=== PATIENT | male | born 1985 | race Caucasian/White ===

== ENCOUNTER 2016-08-04 21:06 | Emergency (ER) | payer OTHER ==
[~2016-08-04] VITALS: Ht 195.6 cm; Wt 125.0 kg
[2016-08-04 21:13] VITALS: Ht 195.6 cm; Wt 125.0 kg
[2016-08-04 21:23] VITALS: O2SAT 97
[2016-08-04] MEDS ORDERED: ASPIRIN 81 MG CHEW PO ONE (21:30)
[2016-08-04] MEDS ORDERED: NITROGLYCERIN OINT 2% 1GM PACKET EXT ONE (21:30)
[2016-08-04 21:37] LABS: HEMATOCRIT 43.7 % (42-52); MEAN CELL VOLUME 90.7 fL (80-100); MEAN CORPUSCULAR HEMOGLOBIN 30.5 pg (25-34); MEAN CORPUSCULAR HGB CONC 33.6 g/dl (32-36); MEAN PLATELET VOLUME 9.5 fL (7.4-10.4); PLATELET COUNT 252 K/uL (130-400); RED BLOOD COUNT 4.82 M/uL (4.7-6.1)
[2016-08-04 21:45] LABS: PARTIAL THROMBOPLASTIN RATIO 1.1; PROTHROMBIN TIME (PATIENT) 10.6 SECONDS (9.0-12.0)
--- NOTE | 2016-08-04 21:49 | DIAGNOSTIC IMAGING REPORT ---
SINGLE VIEW CHEST CLINICAL HISTORY: Atypical chest pain. FINDINGS: An AP, portable, upright chest radiograph is obtained. No prior studies are available for comparison at the time of dictation. The examination is degraded by portable technique and patient rotation. The cardiomediastinal silhouette is unremarkable. The lungs and pleural spaces are clear. No pneumothorax is seen. The bony thorax is grossly intact. IMPRESSION: No active disease in the chest. Electronically signed by: Karri Pelayo M.D. 08/04/2016 9:47 PM Dictated Date/Time: 08/04/2016 9:47 PM
[2016-08-04] MEDS ORDERED: TPRSR/25 PO (21:52)
[2016-08-04] MEDS ORDERED: PRLSR20 PO (21:52)
[2016-08-04 21:59] LABS: ISTAT CREATININE 0.8 mg/dl (0.6-1.3); ISTAT HEMOGLOBIN 14.6 g/dl (14.0-18.0); ISTAT IONIZED CALCIUM 1.23 mmol/l (1.12-1.32)
[2016-08-04 22:00] LABS: BUN/CREATININE RATIO 12.9 (10-20); CREATININE 1.1 mg/dl (0.60-1.40); MAGNESIUM 2.2 mg/dl (1.8-2.4); POTASSIUM 3.7 mmol/L (3.5-5.1)
[2016-08-04 22:08] LABS: CALCIUM 9.5 mg/dl (8.5-10.1)
[2016-08-04 22:10] LABS: ALB/GLOB RATIO 1.5 (0.9-2); CKMB/CK RATIO 0.9 (0-3.0); THYROID STIMULATING HORMONE 3.43 uIu/ml (0.300-4.500)
--- NOTE | 2016-08-05 00:21 | EMERGENCY ROOM VISIT NOTE ---
History First contact with patient: 21:29 Chief Complaint: CHEST PAIN Stated Complaint: CHEST PAINS,ARM NUMBNESS Nursing Triage Summary: "chest pain" facial grimaces, clutching left upper chest with left fist, c/i left and numb and tingling left arm rates pain #5 now, #6 at the worst History of Present Illness The patient is a 31 year old male who presents to the Emergency Room with complaints of intermittent left chest pain for the past week that goes down his arm. He describes pain as aching, ranging in severity 5 out of 10. Pain is not exertional. Nothing makes it better or worse. His father from heart disease at age 57. Patient smokes. He has high blood pressure and cholesterol. Pain has been ongoing for a few hours now. Patient denies dyspnea , fever, chills, cough, congestion, back pain, leg pain or swelling. He has occasional palpitations. Review of Systems See HPI for pertinent positives & negatives. A total of 10 systems reviewed and were otherwise negative. Past Medical/Surgical History Hypertension, hyperlipidemia, GERD Social History Smoking Status: Current Every Day Smoker Alcohol Use: none Drug Use: none Marital Status: Housing Status: lives with family Occupation Status: employed Current/Historical Medications Scheduled Metoprolol Succinate (Metoprolol Succinate ER), 25 MG PO DAILY Omeprazole (Prilosec), 20 MG PO DAILY Allergies Coded Allergies: Amoxicillin (Verified Allergy, Severe, ANAPHYLAXIS, 08/04/16) Clavulanic Acid (Verified Allergy, Severe, ANAPHYLAXIS, 08/04/16) Physical Exam Vital Signs Date Time Temp Pulse Resp B/P Pulse Ox O2 Delivery O2 Flow Rate FiO2 08/04/16 23:36 96 21 96 Room Air 08/04/16 23:31 127/77 08/04/16 23:06 99 24 93 08/04/16 23:01 115/67 08/04/16 22:36 101 16 95 08/04/16 22:31 121/71 08/04/16 22:06 103 23 95 08/04/16 22:00 127/73 08/04/16 21:36 103 24 95 08/04/16 21:31 141/93 08/04/16 21:29 96 Room Air 08/04/16 21:26 96 20 97 Room Air 08/04/16 21:24 105 08/04/16 21:23 36.9 98 17 170/103 97 Room Air 08/04/16 21:23 97 Room Air 08/04/16 21:21 98 17 95 08/04/16 21:16 100 24 97 08/04/16 21:13 36.9 100 20 170/103 97 Room Air 08/04/16 21:11 170/103 Pain Rating (0-10): 0 Physical Exam VITALS: Vitals are noted on the nurse's note and reviewed by myself. Vital signs stable. GENERAL: Pleasant male, in no acute distress, nondiaphoretic, well-developed well-nourished. SKIN: The skin was without rashes, erythema, edema, or bruising. There is no tenting of the skin. Capillary reflex less than 2 seconds. HEAD: Normocephalic atraumatic. EARS: External auditory canals clear, tympanic membranes pearly means without erythema or effusion bilaterally. EYES: Pupils equal round and reactive to light and accommodation. Conjunctivae without injection, sclerae without icterus. Extraocular movements intact. NOSE: Patent, turbinates without inflammation or discharge. MOUTH: Mucous membranes moist. Pharynx without erythema or exudate. Uvula midline. Airway patent. Tongue does not deviate. NECK: Supple without nuchal rigidity. No lymphadenopathy. No thyromegaly. Cervical spine is nontender. No JVD. HEART: Regular rate and rhythm without murmurs gallops or rubs. Chest nontender to palpation LUNGS: Clear to auscultation bilaterally without wheezes, rales or rhonchi. No dullness to percussion. No retractions or accessory muscle use. ABDOMEN: Positive bowel sounds x 4. Normal tympanic percussion. Soft, nontender, without masses or organomegaly. Hicks sign negative. No guarding or rebound tenderness. MUSCULOSKELETAL: No muscle atrophy, erythema, or edema noted. NEURO: Patient was alert and oriented to person place and time. Normal sensation to light and sharp touch. No focal neurological deficits. Medical Decision & Procedures Laboratory Results 08/04/16 21:19 08/04/16 21:19 Test 08/04/16 21:19 08/04/16 21:45 08/04/16 23:56 Red Blood Count 4.82 M/uL (4.7-6.1) Mean Corpuscular Volume 90.7 fL (80-100) Mean Corpuscular Hemoglobin 30.5 pg (25-34) Mean Corpuscular Hemoglobin Concent 33.6 g/dl (32-36) RDW Standard Deviation 43.5 fL (36.4-46.3) RDW Coefficient of Variation 13.1 % (11.5-14.5) Mean Platelet Volume 9.5 fL (7.4-10.4) Prothrombin Time 10.6 SECONDS (9.0-12.0) Prothromb Time International Ratio 1.0 (0.9-1.1) Activated Partial Thromboplast Time 29.2 SECONDS (21.0-31.0) Partial Thromboplastin Ratio 1.1 D-Dimer 240 ug/L FEU (0-500) Est Creatinine Clear Calc Drug Dose 139.8 ml/min Estimated GFR () 101.7 Estimated GFR (Non- 87.7 BUN/Creatinine Ratio 12.9 (10-20) Calcium Level 9.5 mg/dl (8.5-10.1) Magnesium Level 2.2 mg/dl (1.8-2.4) Total Bilirubin 0.5 mg/dl (0.2-1) Aspartate Amino Transf (AST/SGOT) 26 U/L (15-37) Alanine Aminotransferase (ALT/SGPT) 41 U/L (12-78) Alkaline Phosphatase 65 U/L (45-117) Total Creatine Kinase 236 U/L (39-308) Creatine Kinase MB 2.2 ng/ml (0.5-3.6) Creatine Kinase MB Ratio 0.9 (0-3.0) Total Protein 7.1 gm/dl (6.4-8.2) Albumin 4.3 gm/dl (3.4-5.0) Globulin 2.8 gm/dl (2.5-4.0) Albumin/Globulin Ratio 1.5 (0.9-2) Thyroid Stimulating Hormone (TSH) 3.430 uIu/ml (0.300-4.500) Bedside Hemoglobin 14.6 g/dl (14.0-18.0) Bedside Hematocrit 43 % (42-52) Bedside Sodium 142 mEq/L (135-144) Bedside Potassium 3.6 mEq/L (3.3-5.0) Bedside Chloride 103 mEq/L (101-112) Bedside Total CO2 25 mEq/l (24-31) Anion Gap 19.0 mmol/L (16-25) Bedside Blood Urea Nitrogen 15 mg/dl (7-18) Bedside Creatinine 0.8 mg/dl (0.6-1.3) Bedside Glucose (other) 114 mg/dl (70-99) Bedside Ionized Calcium (Maureen) 1.23 mmol/l (1.12-1.32) Bedside Troponin I 0.000 ng/ml (0-0.045) Medications Administered Medications (Trade) Dose Ordered Sig/Bob Route Start Time Stop Time Status Last Admin Dose Admin Aspirin (Aspirin Chew) 324 mg ONE ONCE PO 08/04/16 21:30 08/04/16 21:31 DC 08/04/16 21:28 324 MG Nitroglycerin (Nitroglycerin 2% Oint) 1 inch ONE ONCE EXT 08/04/16 21:30 08/04/16 21:31 DC 08/04/16 21:28 1 INCH ED Course Prior records/ancillary studies reviewed. Triage Nursing notes reviewed. Additional history obtained from family The patient's history was concerning for chest pain. Differential diagnosis: Etiologies such as cardiac ischemia, aortic dissection, pulmonary embolism, pneumonia, pneumothorax, musculoskeletal, infections, pericarditis, myocarditis , esophageal rupture, gastrointestinal, as well as others were entertained. Physical examination: As above. ER treatment provided: Nurse gave aspirin and nitroglycerin prior to my evaluation and this was removed On reassessment the patient felt better. Diagnostic interpretation by me: The electrocardiogram was negative for pathologic change. Normal sinus, normal intervals, occasional PVC, no acute ST-T wave changes. Impression normal sinus rhythm with occasional PVCs interpreted by myself The labs revealed negative troponin 2 that are 2 hours apart, euthyroid Imaging studies: Chest x-ray as above SINGLE VIEW CHEST CLINICAL HISTORY: Atypical chest pain. FINDINGS: An AP, portable, upright chest radiograph is obtained. No prior studies are available for comparison at the time of dictation. The examination is degraded by portable technique and patient rotation. The cardiomediastinal silhouette is unremarkable. The lungs and pleural spaces are clear. No pneumothorax is seen. The bony thorax is grossly intact. IMPRESSION: No active disease in the chest. Electronically signed by: Karri Pelayo M.D. Exam and history seem consistent with chest pain unlikely cardiac in etiology. Patient had 2 troponins that were negative there were 2 hours apart. Negative d -dimer. Euthyroid. Normal EKG. Patient was strongly encouraged to see the loading machine adjuster within the week as he has risk factors for heart disease. He was strongly encouraged to quit smoking. Patient was advised to return to the ER immediately for prolonged chest pain, dyspnea, worsening signs or symptoms or as needed.By the evaluation outlined above emergent etiologies such as cardiac ischemia, aortic dissection, pulmonary embolism, pneumonia, pneumothorax, infections, pericarditis, myocarditis, gastrointestinal, as well as others were deemed relatively unlikely. The pt informed about the findings as listed above. All questions were answered and pleased with the treatment. Return instructions were outlined and the patient was discharged in stable condition. Referral: The patient was referred back to loading machine adjuster and/or primary care physician for follow-up in 2 to 3 days for a recheck of the current condition. Case reviewed with my attending Medical Decision As above Impression Primary Impression: Substernal precordial chest pain Departure Information Dispostion Home / Self-Care Condition GOOD Referrals No Doctor, Assigned (PCP) Forms HOME CARE DOCUMENTATION FORM, IMPORTANT VISIT INFORMATION Patient Instructions My [facility] Additional Instructions Ibuprofen(Motrin, Advil) may be used for fever or pain. Use 600mg every six hours as needed. Take with food. Avoid using more than 2400mg in a 24 hour period. Do not use 2400mg per day for more than three consecutive days without physician direction. Prolonged inappropriate use can lead to stomach upset or ulcers. (AND/OR) Acetaminophen(Tylenol) may be used for fever or pain. Use 1000mg every six hours as needed. Avoid using more than 3000mg in a 24 hour period. Rest and drink plenty of fluids as tolerated. Continue current medications. Avoid strenuous activities and anything that worsens your pain. Resume normal activities once your symptoms resolve. Return to the ER immediately for worsening or persistent chest pain, abdominal pain, vomiting, fevers, chest pains, difficulty breathing, worsening of your condition, or as needed. Follow up with your primary physician in 2-3 days for a recheck of your current condition.
[2016-08-05] MEDS ORDERED: ACETAMINOPHEN 500 MG TAB PO ONE (00:24)
[2016-08-05 00:38] VITALS: BP 127/77; PULSE 96; TEMP 36.9; O2SAT 96
[2017-01-14] MEDS ORDERED: ONDA4TAB10 SL (11:55)
[2017-01-14] MEDS ORDERED: IBUP-1451 PO (11:55)
[2017-01-14] MEDS ORDERED: OXYC1CAP5 PO (11:55)
[2017-01-14] MEDS ORDERED: TAMS0.4C38 PO (11:56)
== END 2016-08-05 00:38 | disposition home or self-care (01) ==
LOC: C.EDB 21:08 → C.EDC 08-05 00:38
DX: R07.2 Precordial pain (principal); I10 Essential (primary) hypertension; E78.5 Hyperlipidemia, unspecified; K21.9 Gastro-esophageal reflux disease without esophagitis; F17.200 Nicotine dependence, unspecified, uncomplicated; Z79.899 Other long term (current) drug therapy; Z88.1 Allergy status to other antibiotic agents; Z88.8 Allergy status to other drugs, medicaments and biological substances

== ENCOUNTER 2021-05-12 15:02 | Observation (INO) ==
[2021-05-12] MEDS ORDERED: SODIUM CHLORIDE 0.9% 500 ML IV STA (15:06)
--- NOTE | 2021-05-12 15:21 | Emergency Department Note ---
Impression & Plan Chest pain ADMIT ED Provider Note HPI: The patient is a 36-year-old male with history of obesity, hypertension, history of thoracic aortic aneurysm with maximum diameter 5 cm, he has been evaluated previously by cardiothoracic surgery at [facility] and determined not to require any surgical intervention at this time, he presents the emergency department with a chief complaint of intermittent episodes of chest discomfort that been ongoing for the past 3 weeks. Patient states these episodes do worsen with exertion. He states he has had multiple episodes similar in the past for which she has had evaluation by cardiology. Patient states that over the past 3 weeks he has been having episodes of chest pain with exertion that seem worse than usual. On arrival here to the ED he is in no acute distress, he has no chest discomfort at rest, he is slightly hypertensive at 150/90, he is otherwise well- appearing on arrival, saturating well on room air. 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 States it does worsen with exertion. IV was established, lab work obtained, troponin is negative x1, EKG does not show any ischemic changes. CT angiography of the chest was obtained given the patient's history of aortic aneurysm, this does show a stable thoracic aortic aneurysm measuring 4.7 cm in maximum diameter with is consistent with patient's previous measurements without any new dilation, no evidence of dissection. Patient's lab work is otherwise generally reassuring, discussed the above findings with the patient and his at the bedside, given that the patient's symptoms have been ongoing for 3 weeks and are typical in nature including worsening with exertion with radiation to the left side of his shoulder and neck, I do feel it is appropriate for the patient to be admitted to which the patient and his at the bedside are in agreement. They state they prefer admission at this time for ACS rule out and cardiology consultation. Patient was given aspirin here in the ED. Case was discussed with the on-call hospitalist for [facility] and the patient was admitted in stable condition for further care. Diagnosis: 1. Chest pain, typical 2. Aortic aneurysm without progressive dilation 3. Obesity with elevated BMI of 40.0 4. History of tobacco use 5. Hypertension Disposition: Admission Aj Prater DO Emergency Medicine Past Med/Surg History Medical History (Updated 05/12/21 @ 16:52 by Aj Prater DO) Enlarged aorta Follows with Dr. Cummins--has echos--currently watching at this time Last ECHO done 11/09/19- "aortic root is severely enlarged with diameter 4.8 cm. Proximal ascending thoracic aorta is mildly enlarged with diameter 4 cm." (No change from 04/2019) History of kidney stones No recent issues Hypertension Per records Tachycardia Reason for carvedilol--pt's HR runs typically at 100 without med, with med 70-80 beats--follows with Dr. Cummins "Paroxysmal atrial tachycardia" per records Surgical History (Updated 11/05/20 @ 15:07 by Shala Castro) History of esophagogastroduodenoscopy (EGD) History of tonsillectomy and adenoidectomy History of wisdom tooth extraction Family History Other No family history of adverse response to anesthesia Social History Smoking Status: Light tobacco smoker Tobacco Type: Smokeless Tobacco (Dip or Chew) Cigarettes Per Day: 20-30 cigs a day; Second Hand Exposure: No; Hx Alcohol Use: Yes Hx Substance Use: No Preferred Language: Belarusian Communication Ability: Effective Civil Engineering Draftsperson Required: No Beliefs That Will Affect Care: None Current Living Situation: Spouse and Family Current Living Situation Comment: Lives with and kids (50% of the time) Assistive Devices: None Allergies Allergies Allergy/AdvReac Type Severity Reaction Status Date / Time amoxicillin Allergy Severe ANAPHYLAXIS Verified 05/12/21 16:02 clavulanic acid Allergy Severe ANAPHYLAXIS Verified 05/12/21 16:02 Home Meds Home Medications Medication Instructions Recorded Confirmed carvedilol 12.5 mg tablet 12.5 mg PO BID 10/15/20 05/12/21 omeprazole 20 mg capsule,delayed 20 mg PO QAM 10/15/20 05/12/21 release prednisone 20 mg tablet See Rx Instructions .ROUTE .COMPLEX 05/12/21 05/12/21 Results & Data (ED) Vital Signs Vital Signs - 24 hr 05/12/21 15:02 05/12/21 15:06 Temperature 36.2 C L Temperature Source Temporal Artery Scan Pulse Rate 106 H 93 H Pulse Rhythm Regular Respiratory Rate 18 16 Blood Pressure 150/90 H Blood Pressure Mean 110 Pulse Oximetry 97 95 Oxygen Delivery Method Room Air Room Air Sepsis Recent Fever Within 48 Hours No Sepsis New/Unexplained Change in Mental Status No Sepsis Action Taken by Nursing No Action Required Laboratory Data Result diagrams: 05/12/21 15:19 05/12/21 15:19 Lab Results 05/12/21 05/12/21 05/12/21 Range/Units 15:19 15:19 15:19 WBC 7.23 (4.8-10.8) K/uL RBC 4.80 (4.7-6.1) M/uL Hgb 15.4 (14.0-18.0) g/dL Hct 45.1 (42-52) % MCV 94.0 (80-100) fL MCH 32.1 (25-34) pg MCHC 34.1 (32-36) g/dL RDW Std Deviation 44.0 (36.4-46.3) fL RDW Coeff of Brian 12.7 (11.5-14.5) % Plt Count 267 (130-400) K/uL MPV 9.5 (7.4-10.4) fL Immature Gran % (Auto) 0.4 % Neut % (Auto) 66.1 % Lymph % (Auto) 23.4 % [place] % (Auto) 7.9 % Eos % (Auto) 1.8 % Baso % (Auto) 0.4 % Neut # (Auto) 4.78 (1.4-6.5) K/uL Lymph # (Auto) 1.69 (1.2-3.4) K/uL [place] # (Auto) 0.57 (0.11-0.59) K/uL Eos # (Auto) 0.13 (0-0.5) K/uL Baso # (Auto) 0.03 (0-0.2) K/uL Immature Gran # (Auto) 0.03 H (0.00-0.02) K/uL PT 9.8 Cancelled (9.0-12.0) Seconds INR 1.0 Cancelled (0.9-1.1) APTT 27.6 Cancelled (21.0-31.0) Seconds PTT Ratio 1.0 Cancelled D-Dimer 370 (0-500) ug/L FEU Sodium (136-145) mmol/L Potassium (3.5-5.1) mmol/L Chloride (98-107) mmol/L Carbon Dioxide (21-32) mmol/L Anion Gap (3-11) BUN (6-23) mg/dl Creatinine (0.6-1.4) mg/dl Est Cr Clr Drug Dosing ml/min Est GFR ( Amer) ml/min Est GFR (Non-Af Amer) ml/min BUN/Creatinine Ratio (10-20) Glucose (70-99(Fasting)) mg/dl Calcium (8.5-10.1) mg/dl Total Bilirubin (0.2-1.0) mg/dl AST (13-39) U/L ALT (7-52) U/L Alkaline Phosphatase (34-104) U/L Troponin I (0-0.04) ng/ml Total Protein (6.0-8.3) gm/dl Albumin (3.4-5.0) gm/dl Globulin (2.5-4.0) gm/dl Albumin/Globulin Ratio (0.9-2) Lipase (11-82) U/L 05/12/21 Range/Units 15:19 WBC (4.8-10.8) K/uL RBC (4.7-6.1) M/uL Hgb (14.0-18.0) g/dL Hct (42-52) % MCV (80-100) fL MCH (25-34) pg MCHC (32-36) g/dL RDW Std Deviation (36.4-46.3) fL RDW Coeff of Brian (11.5-14.5) % Plt Count (130-400) K/uL MPV (7.4-10.4) fL Immature Gran % (Auto) % Neut % (Auto) % Lymph % (Auto) % [place] % (Auto) % Eos % (Auto) % Baso % (Auto) % Neut # (Auto) (1.4-6.5) K/uL Lymph # (Auto) (1.2-3.4) K/uL [place] # (Auto) (0.11-0.59) K/uL Eos # (Auto) (0-0.5) K/uL Baso # (Auto) (0-0.2) K/uL Immature Gran # (Auto) (0.00-0.02) K/uL PT (9.0-12.0) Seconds INR (0.9-1.1) APTT (21.0-31.0) Seconds PTT Ratio D-Dimer (0-500) ug/L FEU Sodium 136 (136-145) mmol/L Potassium 4.0 (3.5-5.1) mmol/L Chloride 105 (98-107) mmol/L Carbon Dioxide 23 (21-32) mmol/L Anion Gap 8 (3-11) BUN 15 (6-23) mg/dl Creatinine 0.78 (0.6-1.4) mg/dl Est Cr Clr Drug Dosing 208.3 ml/min Est GFR ( Amer) 132.7 ml/min Est GFR (Non-Af Amer) 114.5 ml/min BUN/Creatinine Ratio 19.2 (10-20) Glucose 86 (70-99(Fasting)) mg/dl Calcium 9.3 (8.5-10.1) mg/dl Total Bilirubin 0.5 (0.2-1.0) mg/dl AST 25 (13-39) U/L ALT 40 (7-52) U/L Alkaline Phosphatase 65 (34-104) U/L Troponin I < 0.03 (0-0.04) ng/ml Total Protein 7.0 (6.0-8.3) gm/dl Albumin 4.5 (3.4-5.0) gm/dl Globulin 2.5 (2.5-4.0) gm/dl Albumin/Globulin Ratio 1.8 (0.9-2) Lipase 17 (11-82) U/L Administered Medications Discontinued Medications Sodium Chloride (Nss) 500 mls @ 999 mls/hr IV .Q31M STA Stop: 05/12/21 15:36 Last Admin: 05/12/21 15:20 Dose: 999 mls/hr Documented by: [id number] Ioversol (Optiray 320 125ml) 120 ml IV ONCE ONE Stop: 05/12/21 16:20 Last Admin: 05/12/21 16:19 Dose: 120 ml Documented by: [id number] Imaging Data Radiologist's Impression: Chest CTA 05/12/21 15:13 CT angio chest dissec wo/w con HISTORY: 36 years-old Male CP, Eval for dissection acute chest pain with shortness of breath COMPARISON: Chest radiographs 10/25/2020 TECHNIQUE: CTA of the chest was obtained both with and without the use of 120 mL Optiray 320. 3-D coronal and sagittal MIPS were obtained from the axial data set and were submitted for review. All measurements were obtained according to NASCET criteria. A dose lowering technique was used consistent with the principals of GERARD. FINDINGS: CTA: The heart is normal in size.. Fusiform dilation of the aortic root at the level of the sinuses of Valsalva measures up to 4.7 cm transversely. The remainder of the thoracic aorta appears normal. No dissection or atherosclerotic plaque. No mediastinal or intramural hematoma. Unremarkable pulmonary artery. CT CHEST: No large thyroid nodule. No adenopathy. No pneumothorax, pleural effusion, airspace consolidation or overt edema. No suspicious pulmonary nodules or masses. The central airways are patent. Hepatosplenomegaly with hepatic steatosis. The spleen measures up to 16.7 cm in length. Unremarkable soft tissues. No acute fracture. IMPRESSION: 1. No acute intrathoracic abnormality. 2. Fusiform dilation of the aortic root at the level of the sinuses of Valsalva measures up to 4.7 cm. The thoracic aorta is otherwise normal 3. Hepatosplenomegaly with hepatic steatosis. ACT 112: Negative or not required by law. The above report was generated using voice recognition software. It may contain grammatical, syntax or spelling errors. Electronically signed by: Garfield Noel M.D. 05/12/2021 4:35 PM Discharge Plan Visit Data Chief Complaint: Chest Pain Stated Complaint: NUMBNESS ON LEFT SIDE, AORTIC ANEYRSM ED Provider: Aj Prater Discharge Problem: Chest pain Forms Stand Alone Forms: My [facility] Prescriptions Prescriptions: No Action carvedilol 12.5 mg tablet 12.5 mg PO BID RF: 0 omeprazole 20 mg capsule,delayed release(DR/EC) 20 mg PO QAM RF: 0 prednisone 20 mg tablet See Rx Instructions .ROUTE .COMPLEX RF: 0 Referrals Referrals: Honorio Cutler PA-C [Primary Care Provider] - Discharge Problem: Chest pain Qualifiers: Chest pain type: unspecified Qualified Code(s): R07.9 - Chest pain, unspecified
[2021-05-12 15:30] LABS: Basophils # (auto) 0.03 K/uL (0-0.2); Basophils % (auto) 0.4 %; Eosinophils # (auto) 0.13 K/uL (0-0.5); Eosinophils % (auto) 1.8 %; Hematocrit (blood only) 45.1 % (42-52); Hemoglobin 15.4 g/dL (14.0-18.0); Immature Granulocytes # (auto) 0.03 K/uL (0.00-0.02); Immature Granulocytes % (auto) 0.4 %; Lymphocytes # (auto) 1.69 K/uL (1.2-3.4); Lymphocytes % (auto) 23.4 %; Mean Corpuscular Hemoglobin 32.1 pg (25-34); Mean Corpuscular Hgb Conc 34.1 g/dL (32-36); Mean Platelet Volume 9.5 fL (7.4-10.4); Monocytes # (auto) 0.57 K/uL (0.11-0.59); Monocytes % (auto) 7.9 %; Neutrophils # (auto) 4.78 K/uL (1.4-6.5); Neutrophils % (auto) 66.1 %; Platelet Count 267 K/uL (130-400); RDW Coefficient of Variation 12.7 % (11.5-14.5); White Blood Count 7.23 K/uL (4.8-10.8)
[2021-05-12 15:42] LABS: D Dimer 370 ug/L FEU (0-500); Partial Thromboplastin Time 27.6 Seconds (21.0-31.0); Prothrombin Time 9.8 Seconds (9.0-12.0)
[2021-05-12 15:52] LABS: Troponin I < 0.03 ng/ml (0-0.04)
[2021-05-12 15:56] LABS: Alanine Aminotransferase 40 U/L (7-52); Albumin Globulin Ratio 1.8 (0.9-2); Albumin Level 4.5 gm/dl (3.4-5.0); Alkaline Phosphatase 65 U/L (34-104); Anion Gap 8 (3-11); Aspartate Aminotransferase 25 U/L (13-39); BUN Creatinine Ratio 19.2 (10-20); Bilirubin,Total 0.5 mg/dl (0.2-1.0); Blood Urea Nitrogen 15 mg/dl (6-23); Calcium 9.3 mg/dl (8.5-10.1); Carbon Dioxide 23 mmol/L (21-32); Chloride 105 mmol/L (98-107); Creatinine Clr Calc Pharmacy 208.3 ml/min; Est GFR (African American) 132.7 ml/min; Est GFR (Non-African American) 114.5 ml/min; Globulin 2.5 gm/dl (2.5-4.0); Glucose 86 mg/dl (70-99(Fasting)); Lipase 17 U/L (11-82); Sodium 136 mmol/L (136-145)
[2021-05-12] MEDS ORDERED: OPTIRAY 320 125ml IV ONE (16:19)
--- NOTE | 2021-05-12 16:36 | CT Scan Report ---
CT angio chest dissec wo/w con HISTORY: 36 years-old Male CP, Eval for dissection acute chest pain with shortness of breath COMPARISON: Chest radiographs 10/25/2020 TECHNIQUE: CTA of the chest was obtained both with and without the use of 120 mL Optiray 320. 3-D cor onal and sagittal MIPS were obtained from the axial data set and were submitted for review. All measu rements were obtained according to NASCET criteria. A dose lowering technique was used consistent wit h the principals zaira GEE. FINDINGS: CTA: The heart is normal in size.. Fusiform dilation of the aortic root at the level of the sinuses of Gloria apollo measures up to 4.7 cm transversely. The remainder of the thoracic aorta appears normal. No diss ection or atherosclerotic plaque. No mediastinal or intramural hematoma. Unremarkable pulmonary arter y. CT CHEST: No large thyroid nodule. No adenopathy. No pneumothorax, pleural effusion, airspace consolidation or overt edema. No suspicious pulmonary nodules or masses. The central airways are patent. Hepatosplenomegaly with hepatic steatosis. The spleen measures up to 16.7 cm in length. Unremarkable soft tissues. No acute fracture. IMPRESSION: 1. No acute intrathoracic abnormality. 2. Fusiform dilation of the aortic root at the level of the sinuses of Valsalva measures up to 4.7 cm . The thoracic aorta is otherwise normal 3. Hepatosplenomegaly with hepatic steatosis. ACT 112: Negative or not required by law. The above report was generated using voice recognition software. It may contain grammatical, syntax o r spelling errors. Electronically signed by: Garfield Noel M.D. 05/12/2021 4:35 PM
[2021-05-12] MEDS ORDERED: ASPIRIN CHEW 324 MG PO STA (16:47)
--- NOTE | 2021-05-12 17:35 | History & Physical Report ---
Date of Service May 12, 2021 Assessment & Plan Plan: Exertional Chest pain -Concern for unstable angina, patient with multiple risk factors -will give aspirin 325mg now, then 81mg daily. start atorvastatin 40mg QHS -continue Coreg 12.5mg BID (Tachycardia and elevated BP on admission due to him missing morning dose), uptitrate Coreg as needed -Trop neg x 1, will trend x 3. -EKG with no dynamic ischemic changes currently -Check Lipid panel, A1c -Order TTE -Patient may need stress test, will place him on NPO after midnight -Cardiology consulted Thoracic Aortic aneurysm -CTA here, aneurysm is stable in size HTN -patient denies knowledge of this diagnosis -He is on Coreg 12.5mg BID, goal SBP < 140. Former smoker Obesity -Ongoing weight loss counseling DVT ppx -SQ lovenox Code Status -Full Code Disposition: -med/surg +telemetry -Observation for now History of Present Illness Chief Complaint: chest pain Primary Care Provider: Honorio Cutler PA-C Mr Karri Cordova is a 36 year old man with history of ascending thoracic aneurysm (4.7 cm on last imaging, follows with [facility]), hypertension, obesity (bmi 40), former smoker who presents today with 3 weeks of exertional chest pain. Chest pain is substernal associated with diaphoresis, radiates down left arm and up neck. Chest pain onset with exertion, relieved with rest. Frequency appears to be increasing. He contacted his [employer] office and was instructed to come to ER for further evaluation. Because of coming to ER, he was unable to take his morning Carvedilol. CTA chest obtained in ER showed unchanged thoracic aneurysm. EKG obtained in ER negative for dynamic ischemic changes Trop <0.03 Allergies Allergy/AdvReac Type Severity Reaction Status Date / Time amoxicillin Allergy Severe ANAPHYLAXIS Verified 05/12/21 16:02 clavulanic acid Allergy Severe ANAPHYLAXIS Verified 05/12/21 16:02 Home Medications Medication Instructions Recorded Confirmed Type carvedilol 12.5 mg tablet 12.5 mg PO BID 10/15/20 05/12/21 History omeprazole 20 mg capsule,delayed 20 mg PO QAM 10/15/20 05/12/21 History release prednisone 20 mg tablet See Rx Instructions .ROUTE .COMPLEX 05/12/21 05/12/21 History Past Med/Surg History Medical History (Updated 05/12/21 @ 16:52 by Aj Prater DO) Enlarged aorta Follows with Dr. Cummins--has echos--currently watching at this time Last ECHO done 11/09/19- "aortic root is severely enlarged with diameter 4.8 cm. Proximal ascending thoracic aorta is mildly enlarged with diameter 4 cm." (No change from 04/2019) History of kidney stones No recent issues Hypertension Per records Tachycardia Reason for carvedilol--pt's HR runs typically at 100 without med, with med 70-80 beats--follows with Dr. Cummins "Paroxysmal atrial tachycardia" per records Surgical History (Updated 11/05/20 @ 15:07 by Shala Castro) History of esophagogastroduodenoscopy (EGD) History of tonsillectomy and adenoidectomy History of wisdom tooth extraction Family History Other No family history of adverse response to anesthesia Social History Smoking Status: Light tobacco smoker Tobacco Type: Smokeless Tobacco (Dip or Chew) Cigarettes Per Day: 20-30 cigs a day; Second Hand Exposure: No; Hx Alcohol Use: Yes Hx Substance Use: No Preferred Language: Northern Irish Communication Ability: Effective Panel Wirer Required: No Beliefs That Will Affect Care: None Current Living Situation: Spouse and Family Current Living Situation Comment: Lives with and kids (50% of the time) Assistive Devices: None Review of Systems Review of Systems: as above in HPI, remaining ROS reviewed and negative Physical Exam Physical Exam: Obese, no acute distress, pleasant ENMT: normocephalic, atraumatic Neck: thick, supple Respiratory: breathing comfortably on room air, no wheezing/rhonchi/rales Cardiovascular: regular rate and rhythm, no murmurs/rubs noted Gastrointestinal (Abdomen): soft, non tender, non distended Musculoskeletal: no edema, no cyanosis or clubbing Skin: No redness, no ulcer, no rash. Patient noted to have cystic acne on his back Neurologic: awake, alert, spontaneously moving extremities Psychiatric: affect normal, speech linear, non pressured Results & Data Results & Data ([facility]) Vital Signs (Past 12 Hours) Vital Signs Temp Pulse Resp BP Pulse Ox 05/12/21 15:06 93 H 16 95 05/12/21 15:02 36.2 C L 106 H 18 150/90 H 97 Laboratory Results Short CBC 05/12/21 Range/Units 15:19 WBC 7.23 (4.8-10.8) K/uL Hgb 15.4 (14.0-18.0) g/dL Hct 45.1 (42-52) % Plt Count 267 (130-400) K/uL BMP 05/12/21 15:19 Sodium 136 Potassium 4.0 Chloride 105 Carbon Dioxide 23 BUN 15 Creatinine 0.78 Glucose 86 Calcium 9.3 Cardiac Enzymes 05/12/21 Range/Units 15:19 Troponin I < 0.03 (0-0.04) ng/ml Liver Function 05/12/21 Range/Units 15:19 Total Bilirubin 0.5 (0.2-1.0) mg/dl AST 25 (13-39) U/L ALT 40 (7-52) U/L Alkaline Phosphatase 65 (34-104) U/L Albumin 4.5 (3.4-5.0) gm/dl
[2021-05-12] MEDS ORDERED: NITROGLYCERIN SL 0.4 MG/TAB TAB SL PRN (21:34)
[2021-05-12] MEDS ORDERED: ACETAMINOPHEN 325 MG TAB PO PRN (21:34)
[2021-05-12] MEDS ORDERED: ZOLPIDEM TARTRATE 5 MG TAB PO PRN (21:34)
[2021-05-12] MEDS ORDERED: MAGNESIUM HYDROXIDE SUSP 30 ML UDC PO PRN (21:34)
[2021-05-12] MEDS ORDERED: ONDANSETRON INJ 2 MG/ML 2 ML VIAL IV PRN (21:34)
[2021-05-12] MEDS: carvediloL 12.5 MG TAB PO SCH (21:51)
[2021-05-13] MEDS: MoRPHine SULFATE 2 MG/ML CARP IV PRN ×2 (04:35→05:14)
[2021-05-13 05:35] LABS: Basophils # (auto) 0.04 K/uL (0-0.2); Basophils % (auto) 0.7 %; Eosinophils # (auto) 0.15 K/uL (0-0.5); Eosinophils % (auto) 2.5 %; Hematocrit (blood only) 41.9 % (42-52); Hemoglobin 14.2 g/dL (14.0-18.0); Immature Granulocytes # (auto) 0.04 K/uL (0.00-0.02); Immature Granulocytes % (auto) 0.7 %; Lymphocytes # (auto) 1.78 K/uL (1.2-3.4); Lymphocytes % (auto) 29.2 %; Mean Corpuscular Hemoglobin 31.9 pg (25-34); Mean Corpuscular Hgb Conc 33.9 g/dL (32-36); Mean Corpuscular Volume 94.2 fL (80-100); Mean Platelet Volume 9.5 fL (7.4-10.4); Monocytes % (auto) 6.6 %; Neutrophils # (auto) 3.69 K/uL (1.4-6.5); Neutrophils % (auto) 60.3 %; Platelet Count 214 K/uL (130-400); RDW Coefficient of Variation 12.8 % (11.5-14.5); Red Blood Count 4.45 M/uL (4.7-6.1)
[2021-05-13 05:56] LABS: BUN Creatinine Ratio 20.5 (10-20); Calcium 8.9 mg/dl (8.5-10.1); Chol HDL Ratio 4.5 (0-5); Creatinine Clr Calc Pharmacy 195.7 ml/min; Est GFR (African American) 129.4 ml/min; Est GFR (Non-African American) 111.6 ml/min
[2021-05-13] MEDS: carvediloL 12.5 MG TAB PO SCH (08:57)
[2021-05-13] MEDS ORDERED: ASPIRIN 81 MG ECTAB PO SCH (09:00)
[2021-05-13] MEDS ORDERED: PANTOprazole 40 MG TAB PO SCH (09:00)
[2021-05-13] MEDS ORDERED: ENOXAPARIN INJ 40 MG/0.4 ML SYR SQ SCH (09:00)
--- NOTE | 2021-05-13 10:24 | Electrocardiogram Report ---
Test Reason : Blood Pressure : / mmHG Vent. Rate : 097 BPM Atrial Rate : 097 BPM P-R Int : 192 ms QRS Dur : 108 ms QT Int : 366 ms P-R-T Axes : 039 -36 024 degrees QTc Int : 464 ms Poor data quality, interpretation may be adversely affected Normal sinus rhythm Incomplete right bundle branch block Left axis deviation Abnormal ECG When compared with ECG of 25-OCT-2020 12:29, QRS axis Shifted left Confirmed by Vikash Barksdale ([id number]) on 05/13/2021 10:23:33 AM Referred By: Confirmed By:Dajuan Barksdale
--- NOTE | 2021-05-13 10:40 | Cardiology Consultation ---
Date of Consultation May 13, 2021 Assessment & Plan (1) Atypical chest pain: (2) Aortic root aneurysm: (3) Hypertension: 36-year-old male admitted for evaluation of chest pain, history of moderate to severe enlargement of the aortic root, mild enlargement of the proximal ascending thoracic aorta, hypertension, chronic tobacco abuse, family history. Patient's chest discomfort by history as well as physical examination appears atypical and is notably reproducible with palpation of the chest wall as detailed above. General measures advised regarding the noncardiac chest pain. Further work-up as per hospitalist. Further cardiac recommendations pending the interpretation of the resting echocardiogram as well as evaluation by Dr. Delgadillo. Supervising Physician Co-Signing Physician Notes Patient seen and examined at the bedside. Describes episodes of chest discomfort when lifting heavy objects as well as activity. The discomfort often radiates to his neck and left arm. Denies any recent injury, falls, or prior surgery. Stable functional capacity. No orthopnea, PND, lower extreme edema, or claudication. Denies lightheadedness, dizziness, syncope, or near syncope. PE: VSS. Gen: NAD, AAO x3. Heart: Regular, normal S1-S2. No murmur. Lungs: Clear bilateral, no rales, rhonchi, wheeze. Neuro: No focal motor deficit. Extremities: No edema. A/P: Agree with above PA-C history, physical exam, assessment and plan. No evidence of acute coronary syndrome. Preliminary review of bedside 2D transthoracic echocardiogram demonstrates stable aortic root and ascending aortic diameter, preserved LV systolic function, and normal wall motion. There is trace to mild aortic insufficiency. Repeat CT performed on admission without evidence of dissection. ECG without ischemic changes. Troponins are undetectable. Prior cardiac CT demonstrating normal coronary arteries without calcification or soft plaque. Patient is currently asymptomatic. Recommend CT of the cervical spine. Blood pressure is well controlled. Continue current cardiovascular medications. History of Present Illness Reason for Consultation: Chest pain Requesting Physician: Sienna Attending Physician: Arvin History of Present Illness Mr. Karri Cordova is a 36 year old male who is being seen at the request of Dr. El. Reason for consultation is chest pain. Outpatient die mechanic is Dr. Cummins. The patient describes episodes of chest pain. The quality of the pain is described as at times sharp and shooting. The pain is located is the left upper chest. The pains occurs randomly, at rest and with activity. When the pain occurs, it's duration is variable. The pain seems to radiate into the back. The symptoms occur multiple times per day. Associated symptoms including: left arm numbness and tingling down into the fingers, numbness on the left cheek, shortness of breath. The pattern of symptoms has been progressive. Precipitating factors are not described by the patient. 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 Factors which relieve the discomfort are not described by the patient. The characteristics of the pain suggest noncardiac chest pain. EKG on presentation revealed normal sinus rhythm at 97 bpm with an incomplete right bundle branch block, left axis deviation. Troponin I negative x3, less than 0.03 ng/ml. Chest CTA showed no acute intrathoracic abnormality. Patient with a known fusiform dilatation of the aortic root at the level of the sinus of Valsalva, measuring up to 4.7 cm via chest CTA on May 12, 2021. Additional findings included hepatosplenomegaly with hepatic steatosis. Continuous telemetry monitoring has revealed sinus rhythm throughout with occasional unifocal PVCs. No significant arrhythmias observed. Resting echocardiography completed just prior to my evaluation, interpretation pending. Social History. Reformed smoker. Chews 1/2 can/day. Social alcohol, couple beers per month. Family History Father with a ruptured aneurysm at the age of 57 per patient report. Outpatient notes state that the patient of at the age of 55 of a presumed GA. Mother is alive with bone cancer status post stem cell transplant and chemotherapy 2 sisters without cardiac issues. Maternal grandmother with an GA in her 80s. Maternal great aunt with a CVA. Allergies Allergy/AdvReac Type Severity Reaction Status Date / Time amoxicillin Allergy Severe ANAPHYLAXIS Verified 05/12/21 16:02 clavulanic acid Allergy Severe ANAPHYLAXIS Verified 05/12/21 16:02 Home Medications Medication Instructions Recorded Confirmed Type carvedilol 12.5 mg tablet 12.5 mg PO BID 10/15/20 05/12/21 History omeprazole 20 mg capsule,delayed 20 mg PO QAM 10/15/20 05/12/21 History release prednisone 20 mg tablet See Rx Instructions .ROUTE .COMPLEX 05/12/21 05/12/21 History Patient History Medical History Enlarged aorta Follows with Dr. Cummins--has echos--currently watching at this time Last ECHO done 11/09/19- "aortic root is severely enlarged with diameter 4.8 cm. Proximal ascending thoracic aorta is mildly enlarged with diameter 4 cm." (No change from 04/2019) History of kidney stones No recent issues Hypertension Per records Tachycardia Reason for carvedilol--pt's HR runs typically at 100 without med, with med 70-80 beats--follows with Dr. Cummins "Paroxysmal atrial tachycardia" per records Surgical History (Updated 11/05/20 @ 15:07 by Shala Castro) History of esophagogastroduodenoscopy (EGD) History of tonsillectomy and adenoidectomy History of wisdom tooth extraction Family History Other No family history of adverse response to anesthesia Social History Smoking Status: Current every day smoker Tobacco Type: Smokeless Tobacco (Dip or Chew) Cigarettes Per Day: 20-30 cigs a day; Second Hand Exposure: No; Do You Dip or Chew Tobacco: Yes; Hx Alcohol Use: Yes Hx Substance Use: No Preferred Language: Urdu Communication Ability: Effective Academic Coordinator Required: No Beliefs That Will Affect Care: None Current Living Situation: Spouse Current Living Situation Comment: Lives with and kids (50% of the time) Other Information That Helps Us Care for You: No Feels Safe at Home: Yes Safety Concerns: Feels Safe At This Time Assistive Devices: None Review of Systems Review of Systems: GERD, on omeprazole. History of renal calculi. Complete review of system is otherwise as stated above, negative, or noncontributory. Physical Exam Physical Exam: General: A&Ox3. NAD. HENT: Normocephalic. Atraumatic. Eyes: PER. Conjunctiva pink, sclera clear. Neck: No carotid bruits. No JVD. No HJR. Heart: RRR. No murmur. No rub. No gallop. PMI is nondisplaced. Chest: There is chest wall pain involving the 3rd left anterior rib reproducing patient's chest discomfort as well as causing sharp pain into the left arm as well as a warmth feeling/facial flushing Lungs: Clear to auscultation. Abdomen: +BS. Soft. Nontender. No masses or organomegaly. Extremities: No clubbing, cyanosis, or edema. Limited neurological examination is without focal deficits. Pulses: radial=2/4, posterior tibial=2/4. Results & Data ([facility]) Vital Signs (Past 12 Hours) Vital Signs Temp Pulse Pulse Resp BP Pulse Ox 05/13/21 08:00 36.6 C 77 70 18 125/79 99 05/13/21 00:13 74 15 126/88 97 Laboratory Results Laboratory Results - last 24 hr 05/12/21 05/12/21 05/12/21 15:19 15:19 15:19 WBC 7.23 RBC 4.80 Hgb 15.4 Hct 45.1 MCV 94.0 MCH 32.1 MCHC 34.1 RDW Std Deviation 44.0 RDW Coeff of Brian 12.7 Plt Count 267 MPV 9.5 Immature Gran % (Auto) 0.4 Neut % (Auto) 66.1 Lymph % (Auto) 23.4 [place] % (Auto) 7.9 Eos % (Auto) 1.8 Baso % (Auto) 0.4 Neut # (Auto) 4.78 Lymph # (Auto) 1.69 [place] # (Auto) 0.57 Eos # (Auto) 0.13 Baso # (Auto) 0.03 Immature Gran # (Auto) 0.03 H PT 9.8 Cancelled INR 1.0 Cancelled APTT 27.6 Cancelled PTT Ratio 1.0 Cancelled D-Dimer 370 Sodium Potassium Chloride Carbon Dioxide Anion Gap BUN Creatinine Est Cr Clr Drug Dosing Est GFR ( Amer) Est GFR (Non-Af Amer) BUN/Creatinine Ratio Glucose Calcium Total Bilirubin AST ALT Alkaline Phosphatase Troponin I Total Protein Albumin Globulin Albumin/Globulin Ratio Triglycerides Cholesterol LDL Cholesterol, Calc VLDL Cholesterol, Calc HDL Cholesterol Cholesterol/HDL Ratio Lipase SARS-CoV-2, RNA, NAAT 05/12/21 05/12/21 05/12/21 15:19 18:00 21:48 WBC RBC Hgb Hct MCV MCH MCHC RDW Std Deviation RDW Coeff of Brian Plt Count MPV Immature Gran % (Auto) Neut % (Auto) Lymph % (Auto) [place] % (Auto) Eos % (Auto) Baso % (Auto) Neut # (Auto) Lymph # (Auto) [place] # (Auto) Eos # (Auto) Baso # (Auto) Immature Gran # (Auto) PT INR APTT PTT Ratio D-Dimer Sodium 136 Potassium 4.0 Chloride 105 Carbon Dioxide 23 Anion Gap 8 BUN 15 Creatinine 0.78 Est Cr Clr Drug Dosing 208.3 Est GFR ( Amer) 132.7 Est GFR (Non-Af Amer) 114.5 BUN/Creatinine Ratio 19.2 Glucose 86 Calcium 9.3 Total Bilirubin 0.5 AST 25 ALT 40 Alkaline Phosphatase 65 Troponin I < 0.03 < 0.03 Total Protein 7.0 Albumin 4.5 Globulin 2.5 Albumin/Globulin Ratio 1.8 Triglycerides Cholesterol LDL Cholesterol, Calc VLDL Cholesterol, Calc HDL Cholesterol Cholesterol/HDL Ratio Lipase 17 SARS-CoV-2, RNA, NAAT NEGATIVE 05/13/21 05/13/21 05/13/21 01:35 05:07 05:07 WBC 6.10 RBC 4.45 L Hgb 14.2 Hct 41.9 L MCV 94.2 MCH 31.9 MCHC 33.9 RDW Std Deviation 44.0 RDW Coeff of Brian 12.8 Plt Count 214 MPV 9.5 Immature Gran % (Auto) 0.7 Neut % (Auto) 60.3 Lymph % (Auto) 29.2 [place] % (Auto) 6.6 Eos % (Auto) 2.5 Baso % (Auto) 0.7 Neut # (Auto) 3.69 Lymph # (Auto) 1.78 [place] # (Auto) 0.40 Eos # (Auto) 0.15 Baso # (Auto) 0.04 Immature Gran # (Auto) 0.04 H PT INR APTT PTT Ratio D-Dimer Sodium 137 Potassium 4.0 Chloride 105 Carbon Dioxide 27 Anion Gap 5 BUN 17 Creatinine 0.83 Est Cr Clr Drug Dosing 195.7 Est GFR ( Amer) 129.4 Est GFR (Non-Af Amer) 111.6 BUN/Creatinine Ratio 20.5 H Glucose 100 H Calcium 8.9 Total Bilirubin AST ALT Alkaline Phosphatase Troponin I < 0.03 Total Protein Albumin Globulin Albumin/Globulin Ratio Triglycerides 185 H Cholesterol 162 LDL Cholesterol, Calc 89 VLDL Cholesterol, Calc 37 H HDL Cholesterol 36 Cholesterol/HDL Ratio 4.5 Lipase SARS-CoV-2, RNA, NAAT Diagnostic Findings May 16, [address] interpretation Summary: The exam quality is good (mild artifacts are present). The Agatston calcium score is 0. The mid right coronary artery was suboptimally visualized due to motion artifact. Otherwise the coronary arteries were adequately visualized with no significant atherosclerotic plaque or stenosis. The aortic root is severely dilated. Proximal ascending aorta is mildly dilated. December 10, 2020 TTE Interpretation Summary (as per Dr. Cummins): The LV wall thickness is mildly increased (concentric). The left ventricular wall motion is normal. The qualitative LV ejection fraction is 55-59% (normal). The left ventricular diastolic function is mildly abnormal (grade I). The aortic valve is trileaflet in morphology without evidence of aortic valve stenosis or regurgitation. The aortic root is dilated to a borderline severe degree, 4.9 cm. The proximal ascending aorta is mildly dilated with diameter of 4.1 -4.2 cm. Compared to the prior study dated 11/09/2019, the aortic root diameter was reported to be 4.8 cm. at that time the proximal ascending aorta diameter was reported to be 4 cm. Continuous telemetry monitoring reveals sinus rhythm with occasional unifocal PVCs. No significant arrhythmias.
--- NOTE | 2021-05-13 15:51 | CT Scan Report ---
CERVICAL SPINE CT CT DOSE: 508.86 mGycm HISTORY: neck and left arm pain TECHNIQUE: Multiaxial CT images of the cervical spine were performed and reformatted in the sagittal and coronal plane without the use of contrast. A dose lowering technique was utilized adhering to th e principles of ALARA. COMPARISON: None. FINDINGS: No fractures. No subluxation. Prevertebral soft tissues and the C1-C2 interval are intact. No pneumothorax. Mild right-sided neural foraminal narrowing at C3-C4 due to the uncovertebral hypert rophy. No significant central canal narrowing by CT technique. IMPRESSION: 1. No fractures within the cervical spine. 2. No significant central canal narrowing. 3. Mild right-sided neural foraminal narrowing at C3-C4. ACT 112: Negative or not required by law. Electronically signed by: Nicholas Alonso M.D. 05/13/2021 3:49 PM
--- NOTE | 2021-05-13 16:52 | Discharge Summary ---
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 Chest pain is substernal associated with diaphoresis, radiates down left arm and up neck. Chest pain onset with exertion, relieved with rest. Frequency appears to be increasing. He contacted his Environmental Conflict Manager' office and was instructed to come to ER for further evaluation. Because of coming to ER, he was unable to take his morning Carvedilol. CTA chest obtained in ER showed unchanged thoracic aneurysm. EKG obtained in ER negative for dynamic ischemic changes Trop <0.03 Admission Exam Per Admitting Provider Physical Exam: Obese, no acute distress, pleasant ENMT: normocephalic, atraumatic Neck: thick, supple Respiratory: breathing comfortably on room air, no wheezing/rhonchi/rales Cardiovascular: regular rate and rhythm, no murmurs/rubs noted Gastrointestinal (Abdomen): soft, non tender, non distended Musculoskeletal: no edema, no cyanosis or clubbing D Skin: No redness, no ulcer, no rash. 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 NAD, on RA. HEENT: No pallor, no icterus. Pupils equal, round and reactive to light. Oral mucosa moist. NECK: No JVD, no neck masses. HEART: S1 and S2 heard. Regular rate and rhythm. No murmur, no gallop. RESPIRATORY SYSTEM: Normal AP diameter. No accessory muscle use. No wheezing, no crackles. ABDOMEN: Soft, bowel sounds present, nontender, no distention. CENTRAL NERVOUS SYSTEM: No facial droop. Speech is clear. Obeys simple commands. Moves extremities. EXTREMITIES: No edema, no erythema seen. Discharge Data Allergies Allergy/AdvReac Type Severity Reaction Status Date / Time amoxicillin Allergy Severe ANAPHYLAXIS Verified 05/12/21 16:02 clavulanic acid Allergy Severe ANAPHYLAXIS Verified 05/12/21 16:02 Consultations 05/12/21 17:15 ED Decision to Admit Stat 05/12/21 21:34 Consult Cardiology Routine Ordered Studies 05/12/21 15:13 CT angio chest dissec wo/w con Stat 05/13/21 14:56 CT cervical spine wo con Urgent Hospital Course (1) Atypical chest pain: Patient was managed for the following while in hospital: #. Exertional Chest pain #. Right-sided cervical neuroforaminal narrowing at C3-C4 - mild Troponin trends negative, EKG without acute ST or T changes, LDL at 89, echo done with EF of 55 to 60%, grade 1 diastolic dysfunction, mild concentric LVH. Had an episode of chest pain relieved with morphine overnight per RN. CT C-spine was done while inpatient: Mild right-sided neural foraminal narrowing at C3-C4. No fractures or central canal narrowing noted. Cardiology evaluated, okay with discharge from cardiac standpoint, no further recommendations. Patient has follow-up with cardiology tomorrow as an outpatient. #. Thoracic Aortic aneurysm -CTA here, aneurysm is stable in size, patient made aware about the need to close monitoring as an outpatient. #. HTN -patient denies knowledge of this diagnosis -He is on Coreg 12.5mg BID, goal SBP < 140. #. Former smoker #. Obesity -Ongoing weight loss counseling Code Status -Full Code Patient being discharged home with following instruction at the point of discharge: Follow-up with your primary care physician within a week time. Follow-up with your cardiology as scheduled. You have aortic root aneurysm 4.7 cm, as discussed at the bedside it needs close follow-up, follow-up with your primary care physician as an outpatient to discuss further on ongoing monitoring. You have mild narrowing of neural foramina at C3-C4 on the right side, avoid excessive exertional activity, can use Tylenol and naproxen for pain, close follow-up with PCP if worsening pain for further management of pain. Continue with your regular activities. Take medications as prescribed. 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 Non-emergency contact: Primary Care Provider Call non-emergency contact if: you have any medication questions, your symptoms worsen, your pain is not controlled and your temperature is above 101 Follow-up/Referrals: Ismael Cummins DO [Family Provider] - (Date & Time 05/14/2021 10:00 AM Provider Ismael Cummins DO Department Cardiology, [facility] ) Honorio Cortez PA-C [Outside Practitioners] - (Date & Time 05/17/2021 10:20 AM Provider Honorio Cortez PA-C Department Family [facility] ) Diet: Heart Healthy Addtl Attending Provider Instructions: Follow-up with your primary care physician within a week time. Follow-up with your cardiology as scheduled. You have aortic root aneurysm 4.7 cm, as discussed at the bedside it needs close follow-up, follow-up with your primary care physician as an outpatient to discuss further on ongoing monitoring. You have mild narrowing of neural foramina at C3-C4 on the right side, avoid excessive exertional activity, can use Tylenol and naproxen for pain, close follow-up with PCP if worsening pain for further management of pain. Continue with your regular activities. Take medications as prescribed. Pending Studies at Discharge: No Stand-Alone Forms: My [employer], Smoking Cessation Medications and DC Order Prescriptions: New acetaminophen 325 mg Tablet 650 mg PO Q8H 14 Days Qty: 84 RF: 0 naproxen 500 mg tablet,delayed release (DR/EC) 500 mg PO BID PRN (Reason: pain) Qty: 14 RF: 0 Continued carvedilol 12.5 mg tablet 12.5 mg PO BID RF: 0 omeprazole 20 mg capsule,delayed release(DR/EC) 20 mg PO QAM RF: 0 Discontinued prednisone 20 mg tablet See Rx Instructions .ROUTE .COMPLEX RF: 0 Discharge Orders: Discharge Order (Routine); Ordered 05/13/21 Ordered By: Jax Sheridan Admission Data Admit Date/Time: 05/12/21 18:07 Attending Provider: aJx Sheridan Admit Provider: Marly El Primary Care Provider: Honorio Cutler Other Providers: Marly El ; Cyrus Delgadillo
--- NOTE | 2021-05-14 08:49 | Electrocardiogram Report ---
Test Reason : Blood Pressure : / mmHG Vent. Rate : 070 BPM Atrial Rate : 070 BPM P-R Int : 184 ms QRS Dur : 104 ms QT Int : 434 ms P-R-T Axes : 044 -18 009 degrees QTc Int : 468 ms Poor data quality, interpretation may be adversely affected Normal sinus rhythm Incomplete right bundle branch block Borderline ECG When compared with ECG of 12-MAY-2021 15:10, No significant change was found Confirmed by Vikash Barksdale ([id number]) on 05/14/2021 8:48:37 AM Referred By: REFERRED SELF Confirmed By:Dajuan Barksdale
== END 2021-05-13 17:41 | disposition home or self-care (01) ==
LOC: EDINP 15:02 → ED 15:02 → SUATTDRO 18:07 → 1E 21:34

== ENCOUNTER 2023-07-30 19:30 | Inpatient (IN) ==
[2023-07-30 20:21] LABS: Basophils # (auto) 0.04 K/uL (0.00-0.20); Basophils % (auto) 0.4 %; Eosinophils # (auto) 0.18 K/uL (0.00-0.50); Hematocrit (blood only) 41.8 % (42.0-52.0); Hemoglobin 14.4 g/dl (14.0-18.0); Immature Granulocytes # (auto) 0.04 K/uL (0.01-0.20); Immature Granulocytes % (auto) 0.4 %; Lymphocytes # (auto) 1.94 K/uL (1.20-3.40); Lymphocytes % (auto) 21.1 %; Mean Corpuscular Hemoglobin 31.6 pg (25.0-34.0); Mean Corpuscular Hgb Conc 34.4 g/dL (32.0-36.0); Mean Corpuscular Volume 91.9 fL (80.0-100.0); Mean Platelet Volume 9.6 fL (9.4-12.4); Monocytes # (auto) 0.69 K/uL (0.11-0.59); Monocytes % (auto) 7.5 %; Neutrophils # (auto) 6.32 K/uL (1.40-6.50); Neutrophils % (auto) 68.6 %; Platelet Count 222 K/uL (130-400); RDW Coefficient of Variation 11.9 % (11.5-14.5); RDW Standard Deviation 39.8 fL (36.4-46.3); Red Blood Count 4.55 M/uL (4.70-6.10); White Blood Count 9.21 K/ul (4.8-10.8)
--- NOTE | 2023-07-30 20:38 | Emergency Department Note ---
Impression & Plan Abdominal pain ED Provider Note Diagnosis: Abdominal cellulitis Disposition: Admission CHIEF COMPLAINT: Abdominal pain HPI: Patient is a 38-year-old male presenting with complaint of abdominal pain. Patient states that his pain is periumbilical. Patient noticed redness forming over the past 24 hours over the questioned area. Patient states he has been constipated not had a bowel movement in 2 days time. Patient denies nausea or vomiting. Patient states approximately 6 months prior he had surgery to fix umbilical hernia. Patient denies fevers or chills. PAST MEDICAL HISTORY: See Below PAST SURGICAL HISTORY: See Below SOCIAL HISTORY: See Below HOME MEDICATIONS: See Below ALLERGIES: See Below VITALS: See Below PHYSICAL EXAMINATION: GENERAL: Well appearing, well nourished, NAD, non-toxic. EYE EXAM: Normal conjunctiva. OROPHARYNX: Moist mucus membranes. Grossly normal dentition. NECK: Supple, LUNGS: Clear to auscultation. Normal chest wall mechanics. HEART: NSR ABDOMEN: Abdomen soft, 8 inch diameter erythema surrounding the umbilicus with tenderness on palpation BACK: No CVA TTP. SKIN: No rashes and no bruising. UPPER EXTREMITIES: Upper extremities are grossly normal LOWER EXTREMITIES: Grossly normal, no edema. NEURO EXAM: A&O x3,, normal speech, moves all 4 extremities PSYCH: Cooperative MEDICAL DECISION MAKING: History obtained from: Patient, ER Course: Patient is a 38-year-old male presenting with complaint of abdominal pain. Patient states he has not had a bowel movement in 2 days time it is little he has once daily. Patient states that he started with redness to his abdomen periumbilical. Patient states he was worried that there was an issue with his umbilical hernia repair from 6 months prior. Patient significantly tender periumbilical on exam. Patient's abdomen soft. Patient given narcotic pain control. Patient had CT scan performed of abdomen pelvis does not show any incarcerated hernia. Patient's lactate is negative. Patient found actually to have cellulitis with phlegmon forming. Patient started on IV vancomycin and admitted to hospital service further treatment evaluation Labs (independently interpreted) are significant for: No leukocytosis Medications given: Morphine, Dilaudid, vancomycin Consultants: Hospitalist Triage Nursing notes reviewed and agree them. Vital Signs: reviewed and remarkable for: no significant abnormalities Past Med/Surg History Medical History Enlarged aorta Follows with Dr. Cummins--has echos--currently watching at this time Last ECHO done 11/09/19- "aortic root is severely enlarged with diameter 4.8 cm. Proximal ascending thoracic aorta is mildly enlarged with diameter 4 cm." (No change from 04/2019) History of kidney stones No recent issues Hypertension Per records Tachycardia Reason for carvedilol--pt's HR runs typically at 100 without med, with med 70-80 beats--follows with Dr. Cummins "Paroxysmal atrial tachycardia" per records Surgical History (Updated 11/05/20 @ 15:07 by Shala Castro) History of esophagogastroduodenoscopy (EGD) History of wisdom tooth extraction History of tonsillectomy and adenoidectomy Family History Other No family history of adverse response to anesthesia Social History Smoking Status: Never smoker Tobacco Type: Smokeless Tobacco (Dip or Chew) Cigarettes Per Day: 20-30 cigs a day; Second Hand Exposure: No; Do You Dip or Chew Tobacco: Yes; Hx Alcohol Use: Yes Hx Substance Use: No Preferred Language: Vincentian Communication Ability: Effective Electrical Engineering Drafting Officer Required: No Beliefs That Will Affect Care: None Current Living Situation: Spouse Current Living Situation Comment: Lives with and kids (50% of the time) Feels Safe at Home: Yes Assistive Devices: None Allergies Allergies Allergy/AdvReac Type Severity Reaction Status Date / Time amoxicillin Allergy Severe ANAPHYLAXIS Verified 05/12/21 16:02 clavulanic acid Allergy Severe ANAPHYLAXIS Verified 05/12/21 16:02 Home Meds Home Medications Medication Instructions Recorded Confirmed omeprazole 20 mg capsule,delayed 20 mg PO QAM 10/15/20 07/30/23 release aspirin 81 mg chewable tablet 81 mg PO QAM 07/30/23 07/30/23 atorvastatin 10 mg tablet 10 mg PO QAM 07/30/23 07/30/23 carvedilol 25 mg tablet 25 mg PO AMHS 07/30/23 07/30/23 Results & Data (ED) Vital Signs Vital Signs - 24 hr 07/30/23 19:55 07/30/23 21:43 07/30/23 22:54 Temperature 36.5 C Temperature Source Temporal Artery Scan Pulse Rate 87 74 Pulse Rate [Apical] 78 Pulse Rhythm [Apical] Regular Pulse Strength [Apical] Normal Respiratory Rate 16 18 Respiratory Effort / Characteristics Non-Labored Spontaneous Non-Labored Spontaneous Respiratory Depth Normal Normal Respiratory Pattern Regular Regular Blood Pressure 163/90 H Blood Pressure [Left Arm] 147/86 H Blood Pressure Mean 114 Blood Pressure Mean [Left Arm] 106 Blood Pressure Position [Left Arm] Lying Pulse Oximetry 97 95 Oxygen Delivery Method Room Air Room Air Sepsis Recent Fever Within 48 Hours No Sepsis New/Unexplained Change in Mental Status N/A Sepsis Action Taken by Nursing No Action Required Laboratory Data 07/30/23 20:08 07/30/23 20:08 Lab Results 07/30/23 07/30/23 07/30/23 Range/Units 20:08 20:26 20:43 WBC 9.21 (4.8-10.8) K/ul RBC 4.55 L (4.70-6.10) M/uL Hgb 14.4 (14.0-18.0) g/dl Hct 41.8 L (42.0-52.0) % MCV 91.9 (80.0-100.0) fL MCH 31.6 (25.0-34.0) pg MCHC 34.4 (32.0-36.0) g/dL RDW Std Deviation 39.8 (36.4-46.3) fL RDW Coeff of Brian 11.9 (11.5-14.5) % Plt Count 222 (130-400) K/uL MPV 9.6 (9.4-12.4) fL Immature Gran % (Auto) 0.4 % Neut % (Auto) 68.6 % Lymph % (Auto) 21.1 % Edmunds % (Auto) 7.5 % Eos % (Auto) 2.0 % Baso % (Auto) 0.4 % Neut # (Auto) 6.32 (1.40-6.50) K/uL Lymph # (Auto) 1.94 (1.20-3.40) K/uL Edmunds # (Auto) 0.69 H (0.11-0.59) K/uL Eos # (Auto) 0.18 (0.00-0.50) K/uL Baso # (Auto) 0.04 (0.00-0.20) K/uL Immature Gran # (Auto) 0.04 (0.01-0.20) K/uL Sodium 137 (136-145) mmol/L Potassium 4.0 (3.5-5.1) mmol/L Chloride 103 (98-107) mmol/L Carbon Dioxide 26 (21-32) mmol/L Anion Gap 8 (3-11) BUN 15 (6-23) mg/dl Creatinine 0.90 (0.6-1.4) mg/dl Est Cr Clr Drug Dosing 179.5 ml/min Est GFR ( Amer) 123.4 ml/min Est GFR (Non-Af Amer) 106.5 ml/min BUN/Creatinine Ratio 16.7 (10-20) Glucose 103 H (70-99(Fasting)) mg/dl Lactate 1.0 (0.4-2.0) mmol/L Calcium 9.7 (8.6-10.3) mg/dl Total Bilirubin 0.8 (0.2-1.0) mg/dl AST 26 (13-39) U/L ALT 32 (7-52) U/L Alkaline Phosphatase 72 (34-104) U/L Total Protein 7.7 (6.0-8.3) gm/dl Albumin 4.5 (3.4-5.0) gm/dl Globulin 3.2 (2.5-4.0) gm/dl Albumin/Globulin Ratio 1.4 (0.9-2) Lipase 8 L (11-82) U/L Urine Color Dark Yellow Urine Appearance Clear (Clear) Urine pH 6.0 (4.5-7.5) Ur Specific Mikana 1.032 H (1.000-1.030) Urine Protein Trace H (Negative) Urine Glucose (UA) Negative (Negative) Urine Ketones Trace H (Negative) Urine Blood Negative (Negative) Urine Nitrite Negative (Negative) Urine Bilirubin Negative (Negative) Urine Urobilinogen Negative (Negative) Ur Leukocyte Esterase Negative (Negative) Urine WBC (Auto) 0-5 (0-5) /hpf Urine RBC (Auto) 0-2 (0-2) /hpf U Hyaline Cast (Auto) 0-2 (0-2) /lpf U Epithel Cells (Auto) 0-2 (0-2) /hpf Urine Bacteria (Auto) None Seen (None Seen) Administered Medications Vancomycin HCl 2,750 mg/ (Sodium Chloride) 555 mls @ 200 mls/hr IV NOW ONE Stop: 07/31/23 01:07 Last Admin: 07/30/23 23:05 Dose: 200 mls/hr Documented By: ZACK Discontinued Medications Hydromorphone HCl (Hydromorphone Inj 1 Mg/Ml Syringe) 1 mg IV NOW STA Stop: 07/30/23 21:19 Last Admin: 07/30/23 21:23 Dose: 1 mg Documented By: ZACK Ioversol (Optiray 320 125ml) 119 ml IV ONCE ONE Stop: 07/30/23 21:18 Last Admin: 07/30/23 21:17 Dose: 119 ml Documented By: TY Morphine Sulfate (Morphine Sulfate 4 Mg/Ml 1 Ml Carp\\Vial) 4 mg IV NOW STA Stop: 07/30/23 20:37 Last Admin: 07/30/23 20:46 Dose: 4 mg Documented By: ZACK Imaging Data Radiologist's Impression: Abdomen/Pelvis CT 07/30/23 20:14 CR Exam(s): CT ABDOMEN + PELVIS With Contrast IV Amt: 119ml optiray 320 EXAM: CT Abdomen and Pelvis With Intravenous Contrast CLINICAL HISTORY: Reason for exam: s/p surgery, pain, poss abscess. TECHNIQUE: Axial computed tomography images of the abdomen and pelvis with intravenous contrast. CTDI is 37.24 mGy and DLP is 2141.08 mGy-cm. Automated exposure control was utilized for the study. A dose lowering technique was utilized adhering to the principles of ALARA. CONTRAST: Patient received 119ml optiray 320 of IV contrast COMPARISON: 01/14/2017. FINDINGS: Lung bases: Unremarkable. No mass. No consolidation. ABDOMEN: Liver: Small low-attenuation structure within the right liver lobe, image 19, series 2 measuring 7 mm, too small to accurately characterize and likely benign such as cyst or hemangioma in the absence of known neoplasm. Otherwise normal liver. Gallbladder and bile ducts: Unremarkable. No calcified stones. No ductal dilation. Pancreas: Unremarkable. No mass. No ductal dilation. Spleen: Unremarkable. No splenomegaly. Adrenals: Unremarkable. No mass. Kidneys and ureters: Unremarkable. Normal left kidney. Small low- attenuation structures within the right kidney, largest seen in the mid lower pole measuring 10 mm consistent with simple cyst. No further follow-up imaging recommended. Otherwise normal right kidney. Stomach and bowel: Unremarkable. No obstruction. No mucosal thickening. PELVIS: Appendix: Normal appendix. Bladder: Unremarkable. No mass. Reproductive: Unremarkable as visualized. ABDOMEN and PELVIS: Intraperitoneal space: Unremarkable. No free air. No significant fluid collection. Bones/joints: Nonspecific degenerative disease of the spine, more significant at the lower thoracic spine. Soft tissues: Diffuse stranding within the anterior subcutaneous fat at the level of the umbilicus concerning for cellulitis. There is focal area of skin thickening with hypodensity at the level of superior umbilical wall measuring 3.2 x 2.6 cm which could represent phlegmonous change versus early abscess formation. Small left-sided fat-containing inguinal hernia versus scrotal lipoma. Vasculature: Unremarkable. No abdominal aortic aneurysm. Lymph nodes: Unremarkable. No enlarged lymph nodes. IMPRESSION: 1. Cellulitis surrounding the umbilicus with focal area of phlegmonous change versus early abscess measuring 3.2 x 2.6 cm along the superior umbilical wall. Short interval ultrasound recommended. 2. No acute process within the abdomen and pelvis seen. Communications: Call Doctor Other Electronically signed by: Charlene Hammonds MD 07/30/23 22:04 PM Discharge Plan Visit Data Chief Complaint: Abdominal Pain Stated Complaint: HERNIA SURG, ABD PAIN, RED/BURNING, SWELLING ED Provider: Reji Cooper Discharge Problem: Abdominal pain Forms Stand Alone Forms: [facility] Prescriptions Prescriptions: No Action omeprazole 20 mg capsule,delayed release(DR/EC) 20 mg PO QAM carvedilol 25 mg tablet 25 mg PO AMHS atorvastatin 10 mg tablet 10 mg PO QAM aspirin 81 mg tablet,chewable 81 mg PO QAM Referrals Referrals: Honorio Cortez PA-C [Primary Care Provider] -
[2023-07-30 20:39] LABS: Albumin Globulin Ratio 1.4 (0.9-2); Albumin Level 4.5 gm/dl (3.4-5.0); BUN Creatinine Ratio 16.7 (10-20); Bilirubin,Total 0.8 mg/dl (0.2-1.0); Calcium 9.7 mg/dl (8.6-10.3); Creatinine Clr Calc Pharmacy 179.5 ml/min; Est GFR (African American) 123.4 ml/min; Est GFR (Non-African American) 106.5 ml/min; Globulin 3.2 gm/dl (2.5-4.0); Total Protein 7.7 gm/dl (6.0-8.3)
[2023-07-30 20:45] LABS: Appearance Urine Clear (Clear); Bacteria Urine Automated None Seen (None Seen); Bilirubin Urine Negative (Negative); Blood Urine Negative (Negative); Cast Urine Automated 0-2 /lpf (0-2); Color Urine Dark Yellow; Epithelial Cell Urine Auto 0-2 /hpf (0-2); Glucose Urine UA Negative (Negative); Ketones Urine Trace (Negative); Leukocyte Esterase Urine Negative (Negative); Nitrite Urine Negative (Negative); Protein Urine Trace (Negative); RBC Urine Automated 0-2 /hpf (0-2); Specific Gravity Urine 1.032 (1.000-1.030); Urobilinogen Urine Negative (Negative); WBC Urine Automated 0-5 /hpf (0-5)
[2023-07-30] MEDS: MoRPHine SULFATE 4 MG/ML 1 ML CARP\\VIAL IV STA (20:46)
[2023-07-30] MEDS: OPTIRAY 320 125ml IV ONE (21:17)
[2023-07-30] MEDS: HYDROmorphone INJ 1 MG/ML SYRINGE IV STA (21:23)
--- NOTE | 2023-07-30 22:05 | CT Scan Report ---
Exam(s): CT ABDOMEN + PELVIS With Contrast IV Amt: 119ml optiray 320 EXAM: CT Abdomen and Pelvis With Intravenous Contrast CLINICAL HISTORY: Reason for exam: s/p surgery, pain, poss abscess. TECHNIQUE: Axial computed tomography images of the abdomen and pelvis with intravenous contrast. CTDI is 37.24 mGy and DLP is 2141.08 mGy-cm. Automated exposure control was utilized for the study. A dose lowering technique was utilized adhering to the principles of ALARA. CONTRAST: Patient received 119ml optiray 320 of IV contrast COMPARISON: 01/14/2017. FINDINGS: Lung bases: Unremarkable. No mass. No consolidation. ABDOMEN: Liver: Small low-attenuation structure within the right liver lobe, image 19, series 2 measuring 7 mm, too small to accurately characterize and likely benign such as cyst or hemangioma in the absence of known neoplasm. Otherwise normal liver. Gallbladder and bile ducts: Unremarkable. No calcified stones. No ductal dilation. Pancreas: Unremarkable. No mass. No ductal dilation. Spleen: Unremarkable. No splenomegaly. Adrenals: Unremarkable. No mass. Kidneys and ureters: Unremarkable. Normal left kidney. Small low- attenuation structures within the right kidney, largest seen in the mid lower pole measuring 10 mm consistent with simple cyst. No further follow-up imaging recommended. Otherwise normal right kidney. Stomach and bowel: Unremarkable. No obstruction. No mucosal thickening. PELVIS: Appendix: Normal appendix. Bladder: Unremarkable. No mass. Reproductive: Unremarkable as visualized. ABDOMEN and PELVIS: Intraperitoneal space: Unremarkable. No free air. No significant fluid collection. Bones/joints: Nonspecific degenerative disease of the spine, more significant at the lower thoracic spine. Soft tissues: Diffuse stranding within the anterior subcutaneous fat at the level of the umbilicus concerning for cellulitis. There is focal area of skin thickening with hypodensity at the level of superior umbilical wall measuring 3.2 x 2.6 cm which could represent phlegmonous change versus early abscess formation. Small left-sided fat-containing inguinal hernia versus scrotal lipoma. Vasculature: Unremarkable. No abdominal aortic aneurysm. Lymph nodes: Unremarkable. No enlarged lymph nodes. IMPRESSION: 1. Cellulitis surrounding the umbilicus with focal area of phlegmonous change versus early abscess measuring 3.2 x 2.6 cm along the superior umbilical wall. Short interval ultrasound recommended. 2. No acute process within the abdomen and pelvis seen. Communications: Call Doctor Other Electronically signed by: Charlene Hammonds MD 07/30/23 22:04 PM
[2023-07-30] MEDS ORDERED: VANCOMYCIN CONSULT ACTIVE PRN (22:21)
[2023-07-30] MEDS: VANCOMYCIN HCL 2,750 MG in SODIUM CHLORIDE 0.9% 500 ML IV ONE (23:05)
--- NOTE | 2023-07-31 00:24 | History & Physical Report ---
Date of Service July 30, 2023 Assessment & Plan (1) Abdominal wall cellulitis: Plan: 38-year-old male with past medical history significant for aortic root enlargement s/p repair, ascending aortic aneurysm, paroxysmal atrial tachycardia, hypertension, morbid obesity, GERD, history of tobacco abuse, history of renal stone, comes because of erythematous rash around his umbilical region going on since last 1 week.Patient had umbical hernia repair on February 19, 2023. He was doing okay. But since last 1 week he developed erythematous rash on the umbilical region. Having lot of pain. Pain is more with movement. Last few days appetite is down. Denies any fevers. Has some blurred visions. Denies chest pain or shortness of breath. Currently no cough. Today having headache. No sore throat. Last few days having alternating diarrhea and constipation. Denies any blood in the stools. Micturating okay. Hemodynamics are okay. Abdominal wall cellulitis CT scan showing cellulitis around umbilicus with focal area of phlegmonous change versus early abscess measuring 3.2 to 2.6 cm Received IV Vanco in the ER. Will continue with IV clinda and Azactam as patient is allergic to penicillins. Surgery consult in AM. ID consult. Will monitor the response. History of aortic root enlargement s/p repair Ascending aortic aneurysm Follow-up Hypertension Paroxysmal atrial tachycardia On Coreg Hyperlipidemia On statin Morbid obesity Needs counseling Follow-up with nutrition DVT prophylaxis SCDs for now Disposition Medical floor Full code History of Present Illness Chief Complaint: Abdominal wall cellulitis and possible abscess Primary Care Provider: Honorio Cortez PA-C 38-year-old male with past medical history significant for aortic root enlargement s/p repair, ascending aortic aneurysm, paroxysmal atrial tachycardia, hypertension, morbid obesity, GERD, history of tobacco abuse, history of renal stone, comes because of erythematous rash around his umbilical region going on since last 1 week.Patient had umbical hernia repair on February 19, 2023. He was doing okay. But since last 1 week he developed erythematous rash on the umbilical region. Having lot of pain. Pain is more with movement. Last few days appetite is down. Denies any fevers. Has some blurred visions. Denies chest pain or shortness of breath. Currently no cough. Today having headache. No sore throat. Last few days having alternating diarrhea and constipation. Denies any blood in the stools. Micturating okay. Hemodynamics are okay. Past medical history. As mentioned above. Past surgical history. Ascending aortic graft bypass. Left heart coronary angiography. Tonsillectomy. Umbilical hernia repair. Social history. . Quit smoking in 2020. Smoked 1 pack a day for 10 years. Alcohol occasionally. No drug use. Family history. Mother had cancer. Father had heart disease. I defenders him. Paternal grandfather had heart disease. Paternal grandmother had dementia. Maternal grandmother had heart disease. Allergies Allergy/AdvReac Type Severity Reaction Status Date / Time amoxicillin Allergy Severe ANAPHYLAXIS Verified 05/12/21 16:02 clavulanic acid Allergy Severe ANAPHYLAXIS Verified 05/12/21 16:02 Home Medications Medication Instructions Recorded Confirmed Type omeprazole 20 mg capsule,delayed 20 mg PO QAM 10/15/20 07/30/23 History release aspirin 81 mg chewable tablet 81 mg PO QAM 07/30/23 07/30/23 History atorvastatin 10 mg tablet 10 mg PO QAM 07/30/23 07/30/23 History carvedilol 25 mg tablet 25 mg PO AMHS 07/30/23 07/30/23 History Past Med/Surg History Medical History Enlarged aorta Follows with Dr. Cummins--has echos--currently watching at this time Last ECHO done 11/09/19- "aortic root is severely enlarged with diameter 4.8 cm. Proximal ascending thoracic aorta is mildly enlarged with diameter 4 cm." (No change from 04/2019) History of kidney stones No recent issues Tachycardia Reason for carvedilol--pt's HR runs typically at 100 without med, with med 70-80 beats--follows with Dr. Cummins "Paroxysmal atrial tachycardia" per records Hypertension Per records Surgical History History of esophagogastroduodenoscopy (EGD) History of wisdom tooth extraction History of tonsillectomy and adenoidectomy Family History Other No family history of adverse response to anesthesia Social History Smoking Status: Never smoker Tobacco Type: Smokeless Tobacco (Dip or Chew) Cigarettes Per Day: 20-30 cigs a day; Second Hand Exposure: No; Do You Dip or Chew Tobacco: Yes; Tobacco Cessation Education Requested by Patient: Yes Hx Alcohol Use: Yes Alcohol type: beer Hx Substance Use: No Preferred Language: Syriac Communication Ability: Effective Permanent Waver Required: No Beliefs That Will Affect Care: None Current Living Situation: Spouse Current Living Situation Comment: Lives with and kids (50% of the time) Other Information That Helps Us Care for You: No Feels Safe at Home: Yes Safety Concerns: Feels Safe At This Time Assistive Devices: None Review of Systems Review of Systems: All systems reviewed & are unremarkable except as noted in HPI & below Physical Exam Physical Exam: General- Not in distress. Head- atraumatic Eyes- PERRL. ENT- oropharynx clear Neck- supple, no JVD. Lungs- clear to auscultation no wheezing or crackles. Heart- regular rhythm; no murmur, no gallop. Abdomen- normal bowel sounds, soft, tenderness in periumbilical region Extremities- no pretibial edema, no erythema seen. Neuro- alert, oriented . No dysarthria, No facial palsy, Moves extremities. Skin- Erythematous changes in anterior abdominal wall mostly periumbilical region Results & Data Results & Data Vital Signs (Past 12 Hours) Vital Signs Temp Pulse Pulse Resp BP BP Pulse Ox 07/30/23 23:00 83 18 142/91 H 96 07/30/23 22:54 74 07/30/23 21:43 78 18 147/86 H 95 07/30/23 19:55 36.5 C 87 16 163/90 H 97 O2 Del Method 07/30/23 23:00 Room Air 07/30/23 22:54 07/30/23 21:43 Room Air 07/30/23 19:55 Room Air Diagnostic Findings Laboratory Results WBC 9.21 K/ul (4.8-10.8) 07/30/23 20:08 RBC 4.55 M/uL (4.70-6.10) L 07/30/23 20:08 Hgb 14.4 g/dl (14.0-18.0) 07/30/23 20:08 Hct 41.8 % (42.0-52.0) L 07/30/23 20:08 MCV 91.9 fL (80.0-100.0) 07/30/23 20:08 MCH 31.6 pg (25.0-34.0) 07/30/23 20:08 MCHC 34.4 g/dL (32.0-36.0) 07/30/23 20:08 RDW Std Deviation 39.8 fL (36.4-46.3) 07/30/23 20:08 RDW Coeff of Brian 11.9 % (11.5-14.5) 07/30/23 20:08 Plt Count 222 K/uL (130-400) 07/30/23 20:08 MPV 9.6 fL (9.4-12.4) 07/30/23 20:08 Immature Gran % (Auto) 0.4 % 07/30/23 20:08 Neut % (Auto) 68.6 % 07/30/23 20:08 Lymph % (Auto) 21.1 % 07/30/23 20:08 [place] % (Auto) 7.5 % 07/30/23 20:08 Eos % (Auto) 2.0 % 07/30/23 20:08 Baso % (Auto) 0.4 % 07/30/23 20:08 Neut # (Auto) 6.32 K/uL (1.40-6.50) 07/30/23 20:08 Lymph # (Auto) 1.94 K/uL (1.20-3.40) 07/30/23 20:08 [place] # (Auto) 0.69 K/uL (0.11-0.59) H 07/30/23 20:08 Eos # (Auto) 0.18 K/uL (0.00-0.50) 07/30/23 20:08 Baso # (Auto) 0.04 K/uL (0.00-0.20) 07/30/23 20:08 Immature Gran # (Auto) 0.04 K/uL (0.01-0.20) 07/30/23 20:08 Sodium 137 mmol/L (136-145) 07/30/23 20:08 Potassium 4.0 mmol/L (3.5-5.1) 07/30/23 20:08 Chloride 103 mmol/L (98-107) 07/30/23 20:08 Carbon Dioxide 26 mmol/L (21-32) 07/30/23 20:08 Anion Gap 8 (3-11) 07/30/23 20:08 BUN 15 mg/dl (6-23) 07/30/23 20:08 Creatinine 0.90 mg/dl (0.6-1.4) 07/30/23 20:08 Est Cr Clr Drug Dosing 179.5 ml/min 07/30/23 20:08 Est GFR ( Amer) 123.4 ml/min 07/30/23 20:08 Est GFR (Non-Af Amer) 106.5 ml/min 07/30/23 20:08 BUN/Creatinine Ratio 16.7 (10-20) 07/30/23 20:08 Glucose 103 mg/dl (70-99(Fasting)) H 07/30/23 20:08 Lactate 1.0 mmol/L (0.4-2.0) 07/30/23 20:43 Calcium 9.7 mg/dl (8.6-10.3) 07/30/23 20:08 Total Bilirubin 0.8 mg/dl (0.2-1.0) 07/30/23 20:08 AST 26 U/L (13-39) 07/30/23 20:08 ALT 32 U/L (7-52) 07/30/23 20:08 Alkaline Phosphatase 72 U/L (34-104) 07/30/23 20:08 Total Protein 7.7 gm/dl (6.0-8.3) 07/30/23 20:08 Albumin 4.5 gm/dl (3.4-5.0) 07/30/23 20:08 Globulin 3.2 gm/dl (2.5-4.0) 07/30/23 20:08 Albumin/Globulin Ratio 1.4 (0.9-2) 07/30/23 20:08 Lipase 8 U/L (11-82) L 07/30/23 20:08 Urine Color Dark Yellow 07/30/23:26 Urine Appearance Clear (Clear) 07/30/23 20:26 Urine pH 6.0 (4.5-7.5) 07/30/23 20:26 Ur Specific [place] 1.032 (1.000-1.030) H 07/30/23 20:26 Urine Protein Trace (Negative) H 07/30/23 20:26 Urine Glucose (UA) Negative (Negative) 07/30/23 20: Urine Ketones Trace (Negative) H 07/30/23 20:26 Urine Blood Negative (Negative) 07/30/23 20:26 Urine Nitrite Negative (Negative) 07/30/23 20: Urine Bilirubin Negative (Negative) 07/30/23 20:26 Urine Urobilinogen Negative (Negative) 07/30/23 20:26 Ur Leukocyte Esterase Negative (Negative) 07/30/23 20:26 Urine WBC (Auto) 0-5 /hpf (0-5) 07/30/23 20: Urine RBC (Auto) 0-2 /hpf (0-2) 07/30/23 20: U Hyaline Cast (Auto) 0-2 /lpf (0-2) 07/30/23 20: U Epithel Cells (Auto) 0-2 /hpf (0-2) 07/30/23 20:26 Urine Bacteria (Auto) None Seen (None Seen) 07/30/23 20:26 Impressions Abdomen/Pelvis CT 07/30/23 20:14 CR Exam(s): CT ABDOMEN + PELVIS With Contrast IV Amt: 119ml optiray 320 EXAM: CT Abdomen and Pelvis With Intravenous Contrast CLINICAL HISTORY: Reason for exam: s/p surgery, pain, poss abscess. TECHNIQUE: Axial computed tomography images of the abdomen and pelvis with intravenous contrast. CTDI is 37.24 mGy and DLP is 2141.08 mGy-cm. Automated exposure control was utilized for the study. A dose lowering technique was utilized adhering to the principles of ALARA. CONTRAST: Patient received 119ml optiray 320 of IV contrast COMPARISON: 01/14/2017. FINDINGS: Lung bases: Unremarkable. No mass. No consolidation. ABDOMEN: Liver: Small low-attenuation structure within the right liver lobe, image 19, series 2 measuring 7 mm, too small to accurately characterize and likely benign such as cyst or hemangioma in the absence of known neoplasm. Otherwise normal liver. Gallbladder and bile ducts: Unremarkable. No calcified stones. No ductal dilation. Pancreas: Unremarkable. No mass. No ductal dilation. Spleen: Unremarkable. No splenomegaly. Adrenals: Unremarkable. No mass. Kidneys and ureters: Unremarkable. Normal left kidney. Small low- attenuation structures within the right kidney, largest seen in the mid lower pole measuring 10 mm consistent with simple cyst. No further follow-up imaging recommended. Otherwise normal right kidney. Stomach and bowel: Unremarkable. No obstruction. No mucosal thickening. PELVIS: Appendix: Normal appendix. Bladder: Unremarkable. No mass. Reproductive: Unremarkable as visualized. ABDOMEN and PELVIS: Intraperitoneal space: Unremarkable. No free air. No significant fluid collection. Bones/joints: Nonspecific degenerative disease of the spine, more significant at the lower thoracic spine. Soft tissues: Diffuse stranding within the anterior subcutaneous fat at the level of the umbilicus concerning for cellulitis. There is focal area of skin thickening with hypodensity at the level of superior umbilical wall measuring 3.2 x 2.6 cm which could represent phlegmonous change versus early abscess formation. Small left-sided fat-containing inguinal hernia versus scrotal lipoma. Vasculature: Unremarkable. No abdominal aortic aneurysm. Lymph nodes: Unremarkable. No enlarged lymph nodes. IMPRESSION: 1. Cellulitis surrounding the umbilicus with focal area of phlegmonous change versus early abscess measuring 3.2 x 2.6 cm along the superior umbilical wall. Short interval ultrasound recommended. 2. No acute process within the abdomen and pelvis seen. Communications: Call Doctor Other Electronically signed by: Charlene Hammonds MD 07/30/23 22:04 PM Code Status & VTE Plan VTE Prophylaxis Plan VTE Prophylaxis will be ordered: Yes
[2023-07-31] MEDS: HYDROmorphone INJ 0.5 MG/0.5 ML SYR IV PRN (02:11)
[2023-07-31] MEDS: SODIUM CHLORIDE 0.9% 1,000 ML IV SCH (02:12)
[2023-07-31] MEDS: CLINDAMYCIN/D5W 600 MG/50 ML BAG IV SCH (02:39)
[2023-07-31] MEDS: AZTREONAM 2,000 MG in DEXTROSE 5% MINI-B 100 ML IV SCH (02:39)
[2023-07-31 05:13] LABS: Basophils # (auto) 0.04 K/uL (0.00-0.20); Basophils % (auto) 0.6 %; Eosinophils % (auto) 2.8 %; Hematocrit (blood only) 37.7 % (42.0-52.0); Hemoglobin 12.9 g/dl (14.0-18.0); Immature Granulocytes # (auto) 0.05 K/uL (0.01-0.20); Immature Granulocytes % (auto) 0.7 %; Lymphocytes # (auto) 1.72 K/uL (1.20-3.40); Lymphocytes % (auto) 23.8 %; Mean Corpuscular Hemoglobin 31.7 pg (25.0-34.0); Mean Corpuscular Hgb Conc 34.2 g/dL (32.0-36.0); Mean Corpuscular Volume 92.6 fL (80.0-100.0); Mean Platelet Volume 9.4 fL (9.4-12.4); Monocytes # (auto) 0.63 K/uL (0.11-0.59); Monocytes % (auto) 8.7 %; Neutrophils # (auto) 4.58 K/uL (1.40-6.50); Neutrophils % (auto) 63.4 %; Platelet Count 167 K/uL (130-400); RDW Coefficient of Variation 11.9 % (11.5-14.5); RDW Standard Deviation 39.9 fL (36.4-46.3); Red Blood Count 4.07 M/uL (4.70-6.10); White Blood Count 7.22 K/ul (4.8-10.8)
[2023-07-31 05:22] LABS: BUN Creatinine Ratio 15.7 (10-20); Calcium 8.6 mg/dl (8.6-10.3); Creatinine Clr Calc Pharmacy 194.9 ml/min; Est GFR (African American) 127.6 ml/min; Est GFR (Non-African American) 110.1 ml/min; Potassium 3.8 mmol/L (3.5-5.1)
--- NOTE | 2023-07-31 08:02 | Surgery Consultation ---
Date of Consultation July 31, 2023 Assessment & Plan (1) Abdominal wall cellulitis: Patient is a pleasant 38 yo male with c/o umbilical pain, erythema, cellulitis, and pain that started the week prior on Friday 07/21 and has been progressively getting worse. He reports he had an open umbilical and ventral hernia repair 2022 at [facility] and had a large piece of mesh placed at that time. On exam the patients abdomen is non distended, warm to touch, with noted cellulitis at umbilical area and surrounding. Patient reports he is passing Flatus, Patient is currently NPO and receiving IV antibiotics. He has a infectious disease consult placed. Upon arrival to the ER he did not have an elevated WBC. A ct of the abd/ pelvis is reading 1. Cellulitis surrounding the umbilicus with focal area of phlegmonous change versus early abscess measuring 3.2 x 2.6 cm along the superior umbilical wall. Short interval ultrasound recommended. 2. No acute process within the abdomen and pelvis seen. Continue IV Fluids for hydration IV antiemetic PRN IV antibiotics IV analgesic PRN No acute surgical intervention at this time, The patient may have a diet from our standpoint. Will increase patients pain medication as he verbalized he does not feel adequate pain relief at this time. Will discuss case with on-call surgeon and further recommendations will be forthcoming. Supervising Physician Co-Signing Physician Notes I personally saw and evaluated the patient with Autumn SALINAS and agree with the assessment and plan 38-year-old male with history of repair 01/2023 at [facility], now with umbilical cellulitis and phlegmon His CT images and results were personally reviewed and interpreted by myself He does have significant abdominal wall cellulitis with phlegmonous change on his CT without any drainable fluid collection No plans for any surgical intervention or I&D Will continue IV ABX today, can have a diet from surgical standpoint Will try to salvage the mesh with ABX If he no worse or improved tomorrow he can be discharged as he has follow up with Dr. Aj Alvarenga on ThursdayAugust 03 Will follow History of Present Illness Reason for Consultation: Umbilical cellulitis Requesting Physician: Dr. Forman Attending Physician: Arjun Wilkerson MD History of Present Illness Patient is a pleasant 38 yo male with PMH open heart aortic aneurysm repair 08/2022, HTN, that presented to the [facility] ER yesterday 07/30/23 with c/o umbilical pain, erythema, cellulitis, and pain that started the week prior on Friday 07/21 and has been progressively getting worse. He reports he had an open umbilical and ventral hernia repair 2022 at [facility] and had a large piece of mesh placed at that time. He spoke with [facility] general surgical office yesterday and told him to come to the ER. He denies known fever, chills. Has severe abdominal pain, mild nausea and also constipation. Last moved his bowels 2 days ago which is abnormal for him however he does report a loss of appetite with abdominal pain. Take a baby ASA for blood thinners. Allergies Allergy/AdvReac Type Severity Reaction Status Date / Time amoxicillin Allergy Severe ANAPHYLAXIS Verified 05/12/21 16:02 clavulanic acid Allergy Severe ANAPHYLAXIS Verified 05/12/21 16:02 Home Medications Medication Instructions Recorded Confirmed Type omeprazole 20 mg capsule,delayed 20 mg PO QAM 10/15/20 07/30/23 History release aspirin 81 mg chewable tablet 81 mg PO QAM 07/30/23 07/30/23 History atorvastatin 10 mg tablet 10 mg PO QAM 07/30/23 07/30/23 History carvedilol 25 mg tablet 25 mg PO AMHS 07/30/23 07/30/23 History Patient History Medical History Enlarged aorta Follows with Dr. Cummins--has echos--currently watching at this time Last ECHO done 11/09/19- "aortic root is severely enlarged with diameter 4.8 cm. Proximal ascending thoracic aorta is mildly enlarged with diameter 4 cm." (No change from 04/2019) History of kidney stones No recent issues Tachycardia Reason for carvedilol--pt's HR runs typically at 100 without med, with med 70-80 beats--follows with Dr. Cummins "Paroxysmal atrial tachycardia" per records Hypertension Per records Surgical History History of esophagogastroduodenoscopy (EGD) History of wisdom tooth extraction History of tonsillectomy and adenoidectomy Family History Other No family history of adverse response to anesthesia Social History Smoking Status: Never smoker Tobacco Type: Smokeless Tobacco (Dip or Chew) Cigarettes Per Day: 20-30 cigs a day; Second Hand Exposure: No; Do You Dip or Chew Tobacco: Yes; Tobacco Cessation Education Requested by Patient: Yes Hx Alcohol Use: Yes Alcohol type: beer Hx Substance Use: No Preferred Language: Nepalese Communication Ability: Effective Tower Air Traffic Control Specialist Required: No Beliefs That Will Affect Care: None Current Living Situation: Spouse Current Living Situation Comment: Lives with and kids (50% of the time) Other Information That Helps Us Care for You: No Feels Safe at Home: Yes Safety Concerns: Feels Safe At This Time Assistive Devices: None Review of Systems Constitutional: + anorexia; no fever and no chills Respiratory: no dyspnea Cardiovascular: no chest pain Gastrointestinal: + abdominal pain, + nausea and + constip ation; no vomiting Integumentary: + erythema (cellulitis umbilical and emily rounding areas ) Psychiatric: no confusion Physical Exam Physical Exam: alert oriented Constitutional: cooperative and comfortable; no acute distress Respiratory: normal respiratory effort and able to speak in complete sentences; no respiratory distress Cardiovascular: Rate/Rhythm: regular rate Gastrointestinal (Abdomen): Inspection/Auscultation: + abdominal surgical scar; abdomen not distended Percussion/Palpation: + abdomen tender and abdomen soft Skin: + erythema (cellulitis , umbilical and surrounding area ) Psychiatric: A+Ox3, euthymic affect Results & Data Vital Signs (Past 12 Hours) Vital Signs Temp Pulse Pulse Pulse Resp BP BP 07/31/23 07:21 98.6 F 85 13 144/82 H 07/31/23 01:25 97.4 F L 73 16 147/96 H 07/30/23 23:00 83 18 142/91 H 07/30/23 22:54 74 07/30/23 21:43 78 18 147/86 H 07/30/23 19:55 97.7 F 87 16 163/90 H Pulse Ox O2 Del Method 07/31/23 07:21 96 Room Air 07/31/23 01:25 95 Room Air 07/30/23 23:00 96 Room Air 07/30/23 22:54 07/30/23 21:43 95 Room Air 07/30/23 19:55 97 Room Air Diagnostic Findings [facility] [place] [phone] CT Scan Report Patient: HEMANT TOUSSAINT Admit Date: 07/30/23 MR#: [id number] Address1: [address] [place] [address] Acct ID:[id number] Address2: Date: 1985 [facility] Zip: [place] [address] Age: 38 Location: ED Sex: M Room/Bed: Att Phy: Diagnosis: HERNIA SURG, ABD PAIN, RED/BURNING, SWELLING Olivia Phy: Honorio Cortez PA-C Service Date: 07/30/23 Fam Phy: Interpreting Phy: Charlene Hammonds MDAdmit Phy: Ordering Phy: Hemant Givens M.D. cc: ~ ADDENDUM ADDENDUM: 07/30/23 22:08 Call Doctor Regarding Other, called Dr. Beckman on 07/29 22:10 (-04:00) Electronically signed by: Charlene Hammonds MD Electronically signed by: Charlene Hammonds MD 07/30/23 22:04 PM ADDENDUM END Exam(s): CT ABDOMEN + PELVIS With Contrast IV Amt: 119ml optiray 320 EXAM: CT Abdomen and Pelvis With Intravenous Contrast CLINICAL HISTORY: Reason for exam: s/p surgery, pain, poss abscess. TECHNIQUE: Axial computed tomography images of the abdomen and pelvis with intravenous contrast. CTDI is 37.24 mGy and DLP is 2141.08 mGy-cm. Automated exposure control was utilized for the study. A dose lowering technique was utilized adhering to the principles of ALARA. CONTRAST: Patient received 119ml optiray 320 of IV contrast COMPARISON: 01/14/2017. FINDINGS: Lung bases: Unremarkable. No mass. No consolidation. ABDOMEN: Liver: Small low-attenuation structure within the right liver lobe, image 19, series 2 measuring 7 mm, too small to accurately characterize and likely benign such as cyst or hemangioma in the absence of known neoplasm. Otherwise normal liver. Gallbladder and bile ducts: Unremarkable. No calcified stones. No ductal dilation. Pancreas: Unremarkable. No mass. No ductal dilation. Spleen: Unremarkable. No splenomegaly. Adrenals: Unremarkable. No mass. Kidneys and ureters: Unremarkable. Normal left kidney. Small low- attenuation structures within the right kidney, largest seen in the mid lower pole measuring 10 mm consistent with simple cyst. No further follow-up imaging recommended. Otherwise normal right kidney. Stomach and bowel: Unremarkable. No obstruction. No mucosal thickening. PELVIS: Appendix: Normal appendix. Bladder: Unremarkable. No mass. Reproductive: Unremarkable as visualized. ABDOMEN and PELVIS: Intraperitoneal space: Unremarkable. No free air. No significant fluid collection. Bones/joints: Nonspecific degenerative disease of the spine, more significant at the lower thoracic spine. Soft tissues: Diffuse stranding within the anterior subcutaneous fat at the level of the umbilicus concerning for cellulitis. There is focal area of skin thickening with hypodensity at the level of superior umbilical wall measuring 3.2 x 2.6 cm which could represent phlegmonous change versus early abscess formation. Small left-sided fat-containing inguinal hernia versus scrotal lipoma. Vasculature: Unremarkable. No abdominal aortic aneurysm. Lymph nodes: Unremarkable. No enlarged lymph nodes. IMPRESSION: 1. Cellulitis surrounding the umbilicus with focal area of phlegmonous change versus early abscess measuring 3.2 x 2.6 cm along the superior umbilical wall. Short interval ultrasound recommended. 2. No acute process within the abdomen and pelvis seen. Communications: Call Doctor Other Electronically signed by: Charlene Hammonds MD 07/30/23 22:04 PM Dictated: 07/30/232203 Transcribed: 07/30/232203 Results Complete Blood Count Results: RBC 4.07 M/uL (4.70-6.10) L 07/31/23 WBC 7.22 K/ul (4.8-10.8) 07/31/23 Hgb 12.9 g/dl (14.0-18.0) L 07/31/23 Hct 37.7 % (42.0-52.0) L 07/31/23 Plt Count 167 K/uL (130-400) 07/31/23 PG Care Time/CCT Total # of Minutes Spent Total Time Spent with Patient: Total time spent is greater than 50% in coordination of care (as documented) at patient's floor/unit and/or counseling patient: Coding Level of Care Code 48249 IN/OBS CONSULT LVL 5,80M Diagnoses Abdominal wall cellulitis L03.311
[2023-07-31] MEDS ORDERED: HYDROmorphone INJ 0.5 MG/0.5 ML SYR IV PRN (08:03)
[2023-07-31] MEDS: ATORVASTATIN 10 MG TAB PO SCH (08:26)
[2023-07-31] MEDS: carvediloL 25 MG TAB PO SCH (08:26)
[2023-07-31] MEDS: HYDROmorphone INJ 1 MG/ML SYRINGE IV PRN (08:26)
[2023-07-31] MEDS: ASPIRIN 81 MG CHEW PO SCH (08:26)
[2023-07-31] MEDS: PANTOprazole 40 MG TAB PO SCH (08:27)
--- OUTSIDE RECORDS SUMMARY | 2023-07-31 09:44 | External Medical Summary | Summary of Care ---
Author Name Unknown Organization [facility] Address [address] [place] [address] Phone [phone] Care Team Providers Care Editor Dictionary Name Role Phone Unavailable Primary Care Provider Unavailabl e Reason for Visit * Reason Onset Date Comments Advice 07/30/2023 Umbilical area r ed and bulge above umbilical area getting larger more discomfort Encounter Details Date Type Department Care Team (Late st Contact Info) Description 07/30/2023 Telephone General Surgery, [place] [address] [facility], Nurse [facility] [place] [address] Advice (Umbilical area red and bulge above... Allergies Active Allergy Reactions Criticality Noted Date Comments Amoxicillin-Pot Clavulanate 06/12/19 16 Swelling, hives Perflutren Muscle pain Medium 07/22/2022 documented as of this encounter (statuses as of 07/30/2023) Medications Medication Sig Dispensed Refills Start Date End Date Status Acetaminophen 325 MG Oral Tablet (Tylenol) Take 2 Tablets by mouth every 8 hours as needed. 0 05/13/2021 Active Aspirin 81 MG Oral Tablet ChewableIndications:P AT (paroxysmal atrial tachycardia) (HCC) Take 1 Tablet by mouth in the morning. 90 Tablet 3 09/26/2022 Active Carvedilol 25 MG Oral Tablet (Coreg) Take 1 Tablet by mouth in the morning and 1 Tablet before bedtime. 180 Tablet 3 09/30/2022 Active oxyCODONE-Acetaminoph en 5-325 MG Oral Tablet (Percocet) Take 1 Tablet by mouth every 4 hours as needed for Pain, Severe or Pain, Moderate. 5 Tablet 0 02/19/2023 Active Omeprazole 20 MG Oral Capsule Delayed Release (PriLOSEC)Indications :Gastroesophageal reflux disease without esophagitis TAKE 1 CAPSULE BY MOUTH EVERY DAY 90 Capsule 1 03/24/2023 Active Atorvastatin Calcium 10 MG Oral Tablet (Lipitor)Indications: Aortic root enlargement (HCC),Dyslipidemia, goal LDL below 70 TAKE 1 TABLET BY MOUTH EVERY DAY IN THE MORNING 90 Tablet 3 05/19/2023 Active Hospital, Clinic, or Other Facility Administered Medication Ordered Dose Route Frequency Start Date End Date Status cyclobenzaprine (Flexeril) tab 10 mgIndications:Aortic root enlargement (HCC) 10 mg OR TID PRN 10/08/2022 Ac tive documented as of this encounter (statuses as of 07/30/2023) Active Problems Problem Noted Date Diagnosed Date Body mass index (BMI) of 40.0 to 44.9 in adult 0 03/30/2023 Overview: Per Obesity protocol Atypical chest pain 02/18/2023 Hx of aortic root repair 08/29/2022 Morbid (severe) obesity due to excess calories 1 04/05/2021 Hx of tonsillectomy 01/28/2021 History of renal stone 08/31/2019 Hypertension goal BP (blood pressure) < 130/80 0 06/02/2019 Aortic root enlargement 06/02/2019 Ascending aortic aneurysm 06/02/2019 History of tobacco abuse 06/02/2019 PAT (paroxysmal atrial tachycardia) 06/02/2019 Tachycardia 06/12/2015 Gastroesophageal reflux disease without esophagi tis 06/12/2015 documented as of this encounter (statuses as of 07/30/2023) Resolved Problems Problem Noted Date Diagnosed Date Resolved Date ADVANCE DIRECTIVE INFORMATION 11/29/2004 01/03/2019 Overview: No, Advance Directive brochure given to patient at prior appointment. documented as of this encounter (statuses as of 07/30/2023) Social History Tobacco Use Types Packs/Day Years Used Date Smoking Tobacco: Former Cigarettes 1 10 0 11/21/2010 - 11/21/2020 Smokeless Tobacco: Former Chew Quit: 2018 Comments:1 can/day x 3 years Alcohol Use Standard Drinks/Week Comments Yes 12 (1 standard drink = 0.6 oz pure alcohol) occasionally, 1-2 times a month. PHQ-2 Answer Date Recorded PHQ-2 Score 0 06/17/2019 Hunger Vital Sign Answer Date Recorded Within the past 12 months, y ou worried that your food would run out before you got the money to buy more. Never true 09/05/19 Within the past 12 months, t he food you bought just didn't last and you didn't have money to get more. Never true 09/04/2022 Sex and Gender Information Value Date Recorded Sex Assigned at Male 10/08/2018 2:43 PM EDT Gender Identity Male 10/08/2018 2:43 PM EDT Sexual Orientation Straight 10/08/2018 2: 43 PM EDT Job Start Date Occupation Industry Not on file Not on file Not on file documented as of this encounter Functional Status Functional Status Response Date of Assess ment Are you deaf or do you have serious difficulty h earing? No 08/28/2022 Are you blind or do you have serious difficulty seeing, even when wearing glasses? No 08/28/2022 Do you have serious difficul ty walking or climbing stairs? (5 years old or older) No 08/28/2022 Do you have difficulty dress ing or bathing? (5 years old or older) No 08/28/2022 Because of a physical, menta l, or emotional condition, do you have difficulty doing errands alone such as visiting a doctor s office or shopping? (15 years old or older) No 08/29/19 Cognitive Status Response Date of Assessm ent Because of a physical, menta l, or emotional condition, do you have serious difficulty concentrating, remembering, or making decisions? (5 years old or older) No 08/28/2022 documented as of this encounter Miscellaneous Notes * Telephone Encounter - Tran Bailon LPN - 07/30/2023 1:18 PM EDT Spoke to pt , pt has more discomfort and redness around umbilical area and bulge above umbilical area . Asking for advice apt 08/03 but will see if Dr alvarenga wants him to be seen sooner documented in this encounter Plan of Treatment Upcoming Encounters Date Type Department Care Team (Late st Contact Info) Description 08/04/2023 11:00 AM EDT Office Visit General Surgery, [facility] [address] [place] [address] Aj Alvarenga MD [address] [place] [address] 10/12/2023 4:00 PM EDT Cardiac Studies Card[facility], [facility] [address] [facility] [address] 10/14/2023 3:30 PM EDT Office Visit Cardiology, [facility] [address] [facility] [place] [address] Janet Chavez CRNP [address] [facility] [address] Health Maintenance Due Date Last Done Comments Hepatitis C Screening 2001 DTaP,Tdap,and Td Vaccines (7 - Tdap) 12/16/2004 12/16/1994, 11/12/1988, 05/17/1985, Additional history exists Depression Screening 06/16/2020 06/17/2019 COVID-19 Vaccine ( season) 2022 Influenza Vaccine (FLU shot) (Season Ended) 2023 GFR 02/10/2024 02/09/2023, 08/21, 08/31/2022, Additional history exists Albumin/Creatinine Ratio 08/26/2025 08/26/2022 Diabetes Screening 02/19/2026 02/19/2023, 1 04/11/2022, 09/01/2022, Additional history exists Lipid Panel 08/27/2027 08/26/2022, 04/24, 10/08/2018 Hepatitis B Completed 11/12/1999, 08/22, 07/17/1999 GARDASIL-HPV IMMUNIZATION SERIES Aged Out No longer eligible based on patient's age to complete this topic MENINGOCOCCAL (MENACTRA/MENVEO) Aged Out No longer eligible based on patient's age to complete this topic Pneumococcal Vaccine: Pediatrics (0 to 5 Years) and At-Risk Patients (6 to 64 Years) Aged Out No longer eligible based on patient's age to complete this topic documented as of this encounter Medical Devices Implanted Type Area Neurosurgery Research Director Device Identifier Shelf Expiration Date Model / Serial / Lot Parietex Compasite Ventral Patch Implanted:Qty : 1 on 02/19/2023 by Aj Alvarenga MD at OR [facility] Mesh N/A: Abdomen COVIDIEN 07/21/2027 [id number] / / [id number] Suture Steel 6 B&S19 M654g - [id number] Implanted:Qty : 3 on 08/28/2022 by Lambert Soriano MD at [place] [facility] N/A: Sternum JNJ : [employer] 05/21/2027 [id number] / / [id number] Graft Gelweave Valsalva 34mm - [id number] - [id number] Implanted:Qty : 1 on 08/28/2022 by Lambert Soriano MD at [place] [facility] N/A: Aorta [employer] [id number] 04/22/2025 [id number] / [id number] / [id number] Band Sternal Zip Fix 5 Pack - [id number] Implanted:Qty : 1 on 08/28/2022 by Lambert Soriano MD at [place] [facility] N/A: Sternum SYNTHES : DEPUY [id number] 09/19/2026 08.501.00 1.05S / / [id number] Description:# of implanted: 4 documented as of this encounter Advance Directives Latest Code Status on File Code Status Date Activated Date Inactivated Comments Full Code 02/19/2023 8:59 AM 02/19/2023 5:27 PM Thi s order reflects the patients wishes and were consensually agreed upon. Question Answer Comments Discussion of Advance Directives occurred with: Patient Code Status History Code Status Date Activated Date Inactivated Comments Full Code 08/28/2022 12:24 PM 09/01/2022 3:41 PM This order reflects the patients wishes and were consensually agreed upon. Question Answer Comments Discussion of Advance Directives occurred with: Not Discussed due to patient's condition
--- OUTSIDE RECORDS SUMMARY | 2023-07-31 09:44 | External Medical Summary | Summary of Care ---
Author Name Unknown Organization [facility] Address [address] [place] [address] Phone [phone] Care Team Providers Care Creative Art Therapist Name Role Phone Unavailable Primary Care Provider Unavailabl e Reason for Visit * Reason Onset Date Comments Appointment 07/28/2023 Appointment sche duled blood from umbilical area and redness of incision Encounter Details Date Type Department Care Team (Late st Contact Info) Description 07/28/2023 Telephone General Surgery, [place] [address] [facility], Nurse [facility] [address] Appointment (Appointment scheduled blood f... Allergies Active Allergy Reactions Criticality Noted Date Comments Amoxicillin-Pot Clavulanate 06/12/19 16 Swelling, hives Perflutren Muscle pain Medium 07/22/2022 documented as of this encounter (statuses as of 07/28/2023) Medications Medication Sig Dispensed Refills Start Date [...] as of this encounter (statuses as of 07/28/2023) Active Problems Problem Noted Date Diagnosed Date [...] as of this encounter (statuses as of 07/28/2023) Resolved Problems Problem Noted Date Diagnosed Date Resolved Date ADVANCE DIRECTIVE INFORMATION 11/29/2004 01/03/2019 Overview: No, Advance Directive brochure given to patient at prior appointment. documented as of this encounter (statuses as of 07/28/2023) Social History Tobacco Use Types Packs/Day Years [...] money to buy more. Never true 09/05/19 23 Within the past 12 months, t he [...] Telephone Encounter - Tran Bailon LPN - 07/28/2023 10:02 AM EDT Appointment scheduled documented in this encounter Plan of Treatment Upcoming Encounters Date Type Department Care Team (Late st Contact Info) Description 08/04/2023 11:00 AM EDT Office Visit General Surgery, [facility] [address] [place] [address] Aj Alvarenga MD [address] [place] [address] 10/12/2023 4:00 PM EDT Cardiac Studies Cardiac Studies, [facility] [address] 10/14/2023 3:30 PM EDT Office Visit Cardiology, [facility] [address] [facility] [address] Janet Chavez CRNP [address] [facility] [place] [address] Health Maintenance Due Date Last Done Comments [...] this encounter Medical Devices Implanted Type Area Service Desk Agent Device Identifier Shelf Expiration Date Model / Serial / Lot Parietex Compasite Ventral Patch Implanted:Qty : 1 on 02/19/2023 by Aj Alvarenga MD at OR [facility] Mesh N/A: Abdomen COVIDIEN 07/21/2027 [id number] / / [id number] Suture Steel 6 B&S19 M654g - [id number] Implanted:Qty : 3 on 08/28/2022 [place] [facility]/A: Sternum JNJ : [employer] 05/21/2027 M654G / / [id number] Graft Gelweave Valsalva 34mm - [id number] - [id number] Implanted:Qty : 1 on 08/28/2022 by Lambert Soriano [place] [facility] N/A: Aorta [employer] [id number] 04/22/2025 [id number] / [id number] / [id number] Band Sternal Zip Fix 5 Pack - [id number] Implanted:Qty : 1 on 08/28/2022 by Lambert Sorinao MD [place] [facility] N/A: Sternum SYNTHES : DEPUY [id number] 09/19/2026 08.501.00 1.05S / / [id number] Description:# of implanted: 4 documented as of [...]
--- OUTSIDE RECORDS SUMMARY | 2023-07-31 09:45 | External Medical Summary | Continuity of Care Document ---
Author Name Unknown Organization [facility] [address] [id number] Address [address] [place] [phone] Care Team Providers Care Evs Manager Name Role Phone Honorio Cortez Primary Care Physician [phone] [id number]s): 05/11/23 - 05/11/23 [facility] [address] [id number] [address] Encounter Diagnosis Laceration of hand(Discharge Diagnosis) - 05/11/23 Discharge Disposition: Home or Self Care Attending Physician: MD Garcia Dov A Referring Physician: MARIA ALEJANDRA Cortez John L Allergies, Adverse Reactions, Alerts Substance Reaction Severity Status Augmentin anaphylaxis Active Assessment and Plan Extracted from: Title:Right palm/thumb laceration Author:MD Jose, Jesús A Date:05/11/23 OUTPATIENT NOTE Name: HEMANT TOUSSAINT Patient Number:[id number] : 1985 Date of Service: 05/11/2023 CHIEF COMPLAINT: Right palm/thumb laceration. HISTORY OF PRESENT ILLNESS: Hemant is an 38-year-old male, hand dominant, who was working on his vehicle when the ratchet slipped hitting his hand. He went to [facility] urgent care where the wound was irrigated and then closed with 5-0 Prolene. He was placed on Keflex 500 mg 3 times daily for 10 days. He was sent to tx for further evaluation and treatments. He rates his pain a 3/10. PAST MEDICAL HISTORY: Aortic root enlargement, ascending aortic aneurysm, GERD, history of renal stones, PAT. PAST SURGICAL HISTORY: Ascending aorta graft with cardiopulmonary bypass, angioplasty, tonsillectomy, epigastric hernia repair, shoulder surgery. MEDICATIONS: Noted in the shared EMR. ALLERGIES: Augmentin causes swelling hives; perflutren causes some pain. FAMILY HISTORY: Mother with cancer, father with heart disease and aortic aneurysm. 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 Admits to smoking, alcohol. Denies chemical dependency. REVIEW OF SYSTEMS: A 14-point review of systems is noted in the office medical record. PHYSICAL EXAM: Patient is in no acute distress breathing easily at 16 breaths per minute. They have an appropriate mood and affect. They weigh 156 kg and are 194 cm tall. Focusing on the patient's right upper extremity: BCR <2 seconds. Sensation light touch is intact on the ulnar aspect of the thumb, diminished sensation approximately 50% radial aspect. Motor to: median, radial, ulnar, AIN, and PIN, as well as musculocutaneous nerves are intact. + Tenderness to palpation thenar eminence. RADIOGRAPHS: Personally performed interpretation of the 3 views of the right hand, AP, oblique, and lateral which showed no acute fracture or dislocation. No foreign body. IMPRESSION: Right palm laceration, tendons appear intact, neuropraxia to the right thumb radial digital nerve. Acute Goal: Decrease pain PLAN: RICE. Short course of anti-inflammatories, alternating with Tylenol as needed for pain. Keep wound covered while at work, air dry at home. Complete course of antibiotics Follow-up 1 week for wound check, follow-up in 2 weeks to have the sutures removed. The patient understood all my instructions and explanation; all their questions were satisfactorily addressed. This chart was completed utilizing [employer] voice recognition software. Grammatical errors, random word insertions, pronoun errors, and incomplete sentences are an occasional consequence of the system. Any questions or concerns about the content, text, or information contained within the body of this dictation should be addressed directly to the author for clarification. _ Medications Aspir 81 Start: 05/11/23 14:29:00 EST Start Date: 05/11/23 Status: Ordered atorvastatin Start: 05/11/23 14:30:00 EST, 10 mg =, PO, Daily Start Date: 05/11/23 Status: Ordered carvedilol Start: 05/11/23 14:30:00 EST, 25 mg =, PO, Daily Start Date: 05/11/23 Status: Ordered cephalexin Start: 05/11/23 14:30:00 EST, 500 mg =, PO, tid, 10 days Start Date: 05/11/23 Status: Ordered omeprazole Start: 05/11/23 14:30:00 EST, 20 mg =, PO, Daily Start Date: 05/11/23 Status: Ordered Mental Status 05/11/23 Barriers to Learning one year None evide nt Mandatory Health Literacy Documentation Yes Health Literacy Communication Barriers N ever Primary Language Citizen Of [place] Problem List Condition Confirmation Course Effective Dates Status Health St atus Informant Laceration of hand Confirmed Active Diagnosis Diagnosis Type Effective Dates Health Status Clinical Service Informant Laceration of hand Discharge Diagnosis 05/11/23 Procedures Procedure Date Related Diagnosis Body Site Status Open heart surgery 08/28/22 Comple chato Hernia 2022 Completed Shoulder 2021 Completed Vital Signs Most recent to oldest [Reference Range]: 1 Height 194 cm (05/11/23 2:27 PM) Patient Weight 156 kg (05/11/23 2:27 PM) Body Mass Index 41.45 kg/m2 (05/11/23 2:27 PM) Social History Social History Type Response Smoking Status Never smoked cigaret oziel Sex Male Outpatient Note * MD Jose, Jesús A: PERFORM, MODIFY Event Display: .Outpt Note Authored Date: [id number] OUTPATIENT NOTE Name: HEMANT TOUSSAINT Patient Number:[id number] : 1985 Date of Service: 05/11/2023 CHIEF COMPLAINT: Right palm/thumb laceration. HISTORY OF PRESENT ILLNESS: Hemant is an 38-year-old male, hand dominant, who was working on his vehicle when the ratchet slipped hitting his hand. He went to [facility] urgent care where the wound was irrigated and then closed with 5-0 Prolene. He was placed on Keflex 500 mg 3 times daily for 10 days. He was sent to tx for further evaluation and treatments. He rates his pain a 3/10. PAST MEDICAL HISTORY: Aortic root enlargement, ascending aortic aneurysm, GERD, history of renal stones, PAT. PAST SURGICAL HISTORY: Ascending aorta graft with cardiopulmonary bypass, angioplasty, tonsillectomy, epigastric hernia repair, shoulder surgery. MEDICATIONS: Noted in the shared EMR. ALLERGIES: Augmentin causes swelling hives; perflutren causes some pain. FAMILY HISTORY: Mother with cancer, father with heart disease and aortic aneurysm. 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 Admits to smoking, alcohol. Denies chemical dependency. REVIEW OF SYSTEMS: A 14-point review of systems is noted in the office medical record. PHYSICAL EXAM: Patient is in no acute distress breathing easily at 16 breaths per minute. They havean appropriate mood and affect. They weigh 156 kg and are 194 cm tall. Focusing on the patient's right upper extremity: BCR <2 seconds. Sensation light touch is intact on the ulnar aspect of the thumb, diminished sensation approximately 50% radial aspect. Motor to: median, radial, ulnar, AIN, and PIN, as well as musculocutaneous nerves are intact. + Tenderness to palpation thenar eminence. RADIOGRAPHS: Personally performed interpretation of the 3 views of the right hand, AP, oblique, andlateral which showed no acute fracture or dislocation. No foreign body. IMPRESSION: Right palm laceration, tendons appear intact, neuropraxia to the right thumb radial digital nerve. Acute Goal: Decrease pain PLAN: RICE. Short course of anti-inflammatories, alternating with Tylenol as needed for pain. Keep wound covered while at work, air dry at home. Complete course of antibiotics Follow-up 1 week for wound check, follow-up in 2 weeks to have the sutures removed. The patient understood all my instructions and explanation; all their questions were satisfactorilyaddressed. This chart was completed utilizing [employer] voice recognition software. Grammatical errors,random word insertions, pronoun errors, and incomplete sentences are an occasional consequence of the system. Any questions or concerns about the content, text, or information contained within the body of this dictation should be addressed directly to the author for clarification. _ Electronic Signature on File Electronically Reviewed/Signed by: Jesús Garcia MD Author Signature Dt/Tm:05/11/2023 03:29 PM [facility] Surveillance Inspector [facility] of [facility] [address], [place] [address] DAB Patient Care team information Care Team Personnel Name: MARIA ALEJANDRA Cortez John L Position: Referring Member Role: Primary Care Provider Address: Address: [address] [address]
--- OUTSIDE RECORDS SUMMARY | 2023-07-31 09:45 | External Medical Summary | Summary of Care ---
Author Name Unknown Organization [facility] Address [address] [place] [address] Phone [phone] Care Team Providers Care Emotional Disabilities Teacher Name Role Phone Honorio Cortez PA-C Primary Care Provider [phone] Reason for Visit * Reason Comments eRx-Medication Refill Encounter Details Date Type Department Care Team (Late st Contact Info) Description 05/16/2023 Refill Cardiology, [facility] [address] [place] [phone] Ismael Cummins, [address] [place] [place] [phone] Aortic root enlargement (HCC); Dyslipidemia, goal LDL below 70 Allergies Active Allergy Reactions Criticality Noted Date Comments Amoxicillin-Pot Clavulanate 06/12/19 16 Swelling, hives Perflutren Muscle pain Medium 07/22/2022 documented as of this encounter (statuses as of 05/19/2023) Medications Medication Sig Dispensed Refills Start Date End Date Status Acetaminophen 325 MG Oral Tablet (Tylenol) Take 2 Tablets by mouth every 8 hours as needed. 0 05/13/2021 Active Aspirin 81 MG Oral Tablet ChewableIndicatio ns:PAT (paroxysmal atrial tachycardia) Take 1 Tablet by mouth in the morning. 90 Tablet 3 09/26/2022 Active Carvedilol 25 MG Oral Tablet (Coreg) Take 1 Tablet by mouth in the morning and 1 Tablet before bedtime. 180 Tablet 3 09/30/2022 Active oxyCODONE-Acetami nophen 5-325 MG Oral Tablet (Percocet) Take 1 Tablet by mouth every 4 hours as needed for Pain, Severe or Pain, Moderate. 5 Tablet 0 02/19/2023 Active Omeprazole 20 MG Oral Capsule Delayed Release (PriLOSEC)Indicat ions:Gastroesopha geal reflux disease without esophagitis TAKE 1 CAPSULE BY MOUTH EVERY DAY 90 Capsule 1 03/24/2023 Active Cephalexin 500 MG Oral CapsuleIndication s:Laceration of right hand without foreign body, initial encounter Take 1 Capsule by mouth in the morning and 1 Capsule at noon and 1 Capsule before bedtime. Do all this for 10 days. 30 Capsule 0 05/09/2023 05/19/2023 Active Atorvastatin Calcium 10 MG Oral Tablet (Lipitor)Indicati ons:Aortic root enlargement (HCC),Dyslipidemi a, goal LDL below 70 TAKE 1 TABLET BY MOUTH EVERY DAY IN THE MORNING 90 Tablet 3 05/19/2023 Active Atorvastatin Calcium 10 MG Oral Tablet (Lipitor)Indicati ons:Aortic root enlargement (HCC),Dyslipidemi a, goal LDL below 70 Take 1 Tablet by mouth in the morning. 90 Tablet 3 06/09/2022 05/19/2023 Discontinued Hospital, Clinic, or Other Facility Administered Medication Ordered Dose Route Frequency Start Date End Date Status cyclobenzaprine (Flexeril) tab 10 mgIndications:Aortic root enlargement (HCC) 10 mg OR TID PRN 10/08/2022 Ac tive documented as of this encounter (statuses as of 05/19/2023) Active Problems Problem Noted Date Diagnosed Date [...] as of this encounter (statuses as of 05/19/2023) Resolved Problems Problem Noted Date Diagnosed Date Resolved Date ADVANCE DIRECTIVE INFORMATION 11/29/2004 01/03/2019 Overview: No, Advance Directive brochure given to patient at prior appointment. documented as of this encounter (statuses as of 05/19/2023) Social History Tobacco Use Types Packs/Day Years [...] shopping? (15 years old or older) No 06/08/20 23 Cognitive Status Response Date of Assessm ent Because of a physical, menta l, or emotional condition, do you have serious difficulty concentrating, remembering, or making decisions? (5 years old or older) No 08/28/2022 documented as of this encounter Miscellaneous Notes * Telephone Encounter - Harrison Limon CRNP - 05/19/2023 12:19 PM EST Signed Prescriptions: Disp Refills Atorvastatin Calcium 10 MG Oral Tablet (Li*90 Tab*3 Sig: TAKE 1 TABLET BY MOUTH EVERY DAY IN THE MORNING Authorizing Provider: HARRISON LIMON * Telephone Encounter - Marichuy Au COT - 05/18/2023 9:48 AM ESTPending Prescriptions: Disp Refills Atorvastatin Calcium 10 MG Oral Tablet [Ph*90 Tab*3 Sig: TAKE 1 TABLET BY MOUTH EVERY DAY IN THE MORNING * Telephone Encounter - Marichuy Au COT - 05/18/2023 9:46 AM EST Did you pend patient's preferred pharmacy and medication before forwarding?yes Pharmacy: [id number] Pending Prescriptions: Disp Refills Atorvastatin Calcium 10 MG Oral Tablet (L*90 Tab*3 Sig: TAKE 1 TABLET BY MOUTH EVERY DAY IN THE MORNING Last Visit: 01/28/2023 (in office), Visit date not found (telemedicine) Next Visit: 07/30/2023 If no future appointments scheduled, and last appointment is greater than a year ago, please schedule patient for a follow-up appointment Last date the medication was ordered: 06-09-2022 Is this request for a controlled substance?No Urine Drug Screen:No results found for this or any previous visit. Patient Phone Numbers Labs: Lab Results Component Value Date/Time CREAT 0.8 02/09/2023 03:14 PM CREAT 1.0 04/22/2019 11:40 AM POTASSIUM 4.0 02/09/2023 03:14 PM POTASSIUM 3.9 08/28/2022 12:30 PM POTASSIUM 4.4 04/22/2019 11:40 AM TSH 3.67 08/11/2022 04:42 PM TSH 2.11 04/22/2019 11:40 AM LDLCALC 134 (H) 05/20/2022 04:28 PM LDLCALC 115 10/08/2018 03:32 PM LDLDIRECT 95 08/26/2022 10:37 AM ALT 33 02/09/2023 03:14 PM ALT 48 04/22/2019 11:40 AM HGBA1C 5.4 08/11/2022 04:42 PM HGBA1C 5.3 10/03/2015 03:46 PM documented in this encounter Plan of Treatment Upcoming Encounters Date Type Department Care Team (Late st Contact Info) Description 07/27/2023 4:00 PM EDT Cardiac Studies Cardiac Studies, [facility] [address] [id number] 07/30/2023 8:00 AM EDT Office Visit Cardiology, [facility] [address] [address] Harrison Limon CRNP [address] [address] Health Maintenance Due Date Last Done Comments Hepatitis C Screening 2001 DTaP,Tdap,and Td Vaccines (7 - Tdap) 12/16/2004 12/16/1994, 11/12/1988, 05/17/1985, Additional history exists Depression Screening 06/16/2020 06/17/2019 COVID-19 Vaccine ( season) 2022 Influenza Vaccine (FLU shot) (#1) 2022 GFR 02/10/2024 02/09/2023, 08/21, 08/31/2022, Additional history [...] this encounter Medical Devices Implanted Type Area Chicken Hatchery Helper Device Identifier Shelf Expiration Date Model / Serial / Lot Parietex Compasite Ventral Patch Implanted:Qty : 1 on 02/19/2023 by Aj Alvarenga MD at OR [facility] Mesh N/A: Abdomen COVIDIEN 07/21/2027 [id number] / / [id number] Suture Steel 6 B&S19 M654g - [id number] Implanted:Qty : 3 on 08/28/2022 by Lambert Soriano MD at OR [facility] N/A: Sternum JNJ : [employer] 05/21/2027 [id number] / / [id number] Graft Gelweave Valsalva 34mm - [id number] - [id number] Implanted:Qty : 1 on 08/28/2022 by Lambert Soriano MD at OR [facility] N/A: Aorta TERRelatient [employer]ICAL [employer]NELIUS [id number] 04/22/2025 [id number] / [id number] / [id number] Band Sternal Zip Fix 5 Pack - [id number] Implanted:Qty : 1 on 08/28/2022 by Lambert Soriano MD at OR [facility] N/A: Sternum SYNTHES : DEPUY [id number] 09/19/2026 08.501.00 1.05S / / [id number] Description:# of implanted: 4 documented as of this encounter Visit Diagnoses Diagnosis Aortic root enlargement (HCC) Other specified disorders of arteries and arterioles Dyslipidemia, goal LDL below 70 Other and unspecified hyperlipidemia documented in this encounter Advance Directives Latest Code Status [...] with: Not Discussed due to patient's condition Care Teams Emotional Disabilities Teacher Relationship Specialty Start Date End Date Honorio Cortez PA-C [address] [place], [place] [address] [id number] PCP - General 02/17/22 documented as of this encounter
[2023-07-31] MEDS: DOCUSATE SODIUM 100 MG CAP PO SCH (11:00)
[2023-07-31] MEDS: ACETAMINOPHEN 1,000 MG/100 ML VIAL IV PRN (11:37)
[2023-07-31] MEDS: POLYETHYLENE (MIRALAX) 17 GM PACK PO PRN (11:39)
--- NOTE | 2023-07-31 15:50 | Hospitalist Progress Note ---
Date of Service July 31, 2023 Assessment & Plan (1) Abdominal wall cellulitis: Plan: 38-year-old male with past medical history significant for aortic root enlargement s/p repair, ascending aortic aneurysm, paroxysmal atrial tachycardia, hypertension, morbid obesity, GERD, history of tobacco abuse, history of renal stone, comes because of erythematous rash around his umbilical region going on since last 1 week.Patient had umbical hernia repair on February 19, 2023. Abdominal wall cellulitis History of umbilical hernia repair; presents with 1 week of redness in periumbilical region CT abdomen shows cellulitis around umbilicus with focal area of phlegmonous change versus early abscess measuring 3.2 to 2.6 cm Continue on IV antibiotics for the time being Surgery evaluated the patient; recommended nonoperative management as there is no drainable fluid collection. Follow-up with Dr. Aj Alvarenga on Friday, August 04, 2023 History of aortic root enlargement s/p repair Ascending aortic aneurysm Follow-up as outpatient Hypertension Paroxysmal atrial tachycardia On Coreg, continue Hyperlipidemia On statin, continue Morbid obesity Needs counseling Follow-up with nutrition DVT prophylaxis SCDs for now Disposition Medical floor Full code Please note the above document was generated using voice recognition software. It may contain grammatical, syntax or spelling errors. Any formal questions or concerns about the content, text or information contained within the body of this dictation should be directly addressed to the provider for clarification Admission and Anticipated Discharge Date Admission Date: July 30, 2023 Subjective Seen and examined at bedside He is comfortably lying in the bed; not in distress Reports pain at the abdominal cellulitis site Afebrile and hemodynamically stable Review of Systems Review of Systems: All systems reviewed & are unremarkable except as noted in Subjective Physical Exam Physical Exam: Constitutional: WD/WN, vitals as above, NAD, sitting up in bed, pleasant, conversing easily Respiratory: normal respiratory effort, lungs clear to auscultation, no wheeze, rales, rhonchi. Normal insp/exp effort, no accessory muscle use Cardiovascular: RRR, no murmur, no edema Vessels: no JVD or carotid bruit Chest: normal inspection of chest Abdomen: Redness present over periumbilical/lower abdomen; induration present around umbilical site Musculoskeletal: no cyanosis or clubbing, extremities motor strength 5/5 Skin: no rashes, warm and dry normal turgor Neurologic: PERRL, EOMI, accommodation nl, no face palsy, no dysarthria CN's II- XI intact bilaterally and moves all extremities Psychiatric: A+Ox3, euthymic affect Results & Data Results & Data Vital Signs (Past 12 Hours) Vital Signs Temp Pulse Resp BP Pulse Ox O2 Del Method 07/31/23 07:21 37.0 C 85 13 144/82 H 96 Room Air
--- NOTE | 2023-07-31 16:09 | Infectious Disease Consult ---
Date of Service July 31, 2023 Telehealth Information I performed this visit using a real-time telehealth connection between my location and the patients location ([facility]). After connecting through interactive tele-video, patient was identified by name and date of and/or wristband check.Patient (or authorized healthcare franchise sales representative) was informed that this was a telemedicine visit and it was being conducted confidentially over secure lines. My office door was closed and no one else was present in the room with me.Patient (or authorized healthcare franchise sales representative) provided consent to proceed with the visit, expressed an understanding of privacy and security of the telemedicine visit, and gave permission to have a hospital franchise sales representative in the room in order to assist with the visit and to conduct portions of the visit, as needed. I informed the patient (or authorized healthcare franchise sales representative) that I reviewed their record and presented the opportunity for them to ask any questions regarding the visit today. The patient agreed to participate. Assessment & Plan (1) Abdominal wall cellulitis: Plan: 38-year-old male with abdominal wall abscess, unclear if related to his prior infection however it is directly underlying the surgical site. He states there was no complications to his surgery, unfortunately there was a mesh that was implanted. Would recommend obtaining a sample of abscess to evaluate for microbe and to obtain source control. Initial evaluation with surgery to attempt removal of mesh if possible, if not feasible at this time potentially reasonable to treat with antibiotics however the likelihood of recurrence if mesh is involved is very high. If related to his surgery, suspect low virulence organism like coag-negative staph however can include Staph aureus, Streptococcus, g negatives although unlikely as it does not seem to be intra- abdominal. Patient is currently stable, would recommend transitioning to vancomycin at this time to cover for staph/strep. course can include MRSA coverage with strep coverage and patient is seemingly okay with beta lactams. Doxy plus Keflex would be reasonable option however there are multitude of other combinations If causative organism is unable to be determined. - vancomycin IV, per pharmacy - please see attending addendum for possible Gram-negative coverage - IR/ General Surgery evaluation for source control/ possible removal of mesh Appreciate consultation, please do not hesitate to reach out for any further questions or concerns. Tomy Graves MD PGY4 Infectious Disease (2) Abdominal wall abscess: History of Present Illness History of Present Illness 38-year-old male with a past medical history aortic root enlargement status post repair, ascending aortic aneurysm, paroxysmal atrial tachycardia with recent umbilical hernia repair in January 2023 w a large (8 cm) Parietex composite ventral patch. Presents due to rash over 1 week however umbilical region associated with the pain, anorexia. CT scan of the abdomen with soft tissue edema with focal area of fluid approximally 3.2 X 2.6 cm along the superior umbilical wall. WBC without elevation, no fevers. Patient was initiated on aztreonam/clindamycin due to anaphylaxis to Augmentin. upon further questioning patient states that he has no problem with the amoxicillin and only had anaphylaxis and difficulty breathing when attempting to take 's prescribed Augmentin. Allergies Allergy/AdvReac Type Severity Reaction Status Date / Time amoxicillin Allergy Severe ANAPHYLAXIS Verified 05/12/21 16:02 clavulanic acid Allergy Severe ANAPHYLAXIS Verified 05/12/21 16:02 Home Medications Medication Instructions Recorded Confirmed Type omeprazole 20 mg capsule,delayed 20 mg PO QAM 10/15/20 07/30/23 History release aspirin 81 mg chewable tablet 81 mg PO QAM 07/30/23 07/30/23 History atorvastatin 10 mg tablet 10 mg PO QAM 07/30/23 07/30/23 History carvedilol 25 mg tablet 25 mg PO AMHS 07/30/23 07/30/23 History Patient History Medical History Enlarged aorta Follows with Dr. Cummins--has echos--currently watching at this time Last ECHO done 11/09/19- "aortic root is severely enlarged with diameter 4.8 cm. Proximal ascending thoracic aorta is mildly enlarged with diameter 4 cm." (No change from 04/2019) History of kidney stones No recent issues Tachycardia Reason for carvedilol--pt's HR runs typically at 100 without med, with med 70-80 beats--follows with Dr. Cummins "Paroxysmal atrial tachycardia" per records Hypertension Per records Surgical History History of esophagogastroduodenoscopy (EGD) History of wisdom tooth extraction History of tonsillectomy and adenoidectomy Family History Other No family history of adverse response to anesthesia Social History Smoking Status: Never smoker Tobacco Type: Smokeless Tobacco (Dip or Chew) Cigarettes Per Day: 20-30 cigs a day; Second Hand Exposure: No; Do You Dip or Chew Tobacco: Yes; Tobacco Cessation Education Requested by Patient: Yes Hx Alcohol Use: Yes Alcohol type: beer Hx Substance Use: No Preferred Language: Wolof Communication Ability: Effective Electrician Crane Maintenance Required: No Beliefs That Will Affect Care: None Current Living Situation: Spouse Current Living Situation Comment: Lives with and kids (50% of the time) Other Information That Helps Us Care for You: No Feels Safe at Home: Yes Safety Concerns: Feels Safe At This Time Assistive Devices: None Review of Systems CONSTITUTIONAL: Denies weight loss, fever and chills. HEENT: Denies changes in vision and hearing. RESPIRATORY: Denies SOB and cough. CV: Denies palpitations and CP. GI: Denies abdominal pain, nausea, vomiting and diarrhea. : Denies dysuria and urinary frequency. MSK: Denies myalgia and joint pain. SKIN: Denies rash and pruritus. NEUROLOGICAL: Denies headache and syncope PSYCHIATRIC: Denies recent changes in mood. Denies anxiety and depression. Results & Data Vital Signs (Past 12 Hours) Vital Signs Temp Pulse Resp BP Pulse Ox O2 Del Method 07/31/23 15:50 36.6 C 71 16 121/67 95 Room Air 07/31/23 07:21 37.0 C 85 13 144/82 H 96 Room Air
--- NOTE | 2023-07-31 16:54 | Communication Note ---
Date of Service: July 31, 2023 [facility] will not allow me to sign Dr. Graves' note. Here is my attestation: ATTESTATION: I saw and evaluated the patient today. I have reviewed the trainee note and agree. My additional thoughts/findingsor any changes to the planare listed below. CLINICAL TEAM: Infectious Diseases Team 4 HISTORY OF PRESENT ILLNESS: The patient was admitted for abdominal pain (in the context of a previous hernia repair with mesh). Workup revealed a phlegmon vs early abscess. The patient was seen by Surgery and they did not plan for any surgical intervention. Blood cultures are in process. IMPRESSION: 1. Abdominal wall abscess 2. PCN (Augmentin?) allegy RECOMMENDATIONS: 1. IV vancomycin, dosed per PK 2. See below re: gram negative coverage 3. Dose all antibiotics per your hospital protocol 4. See below re: source control COMMENT(S): I cannot tell which gram negative drugs the patient can tolerate (has he had cefepime or meropenem in the past?). Please send me a [place] Text so that we can discuss. If blood cultures are ultimately negative, we will have no culture date and no source control. We could choose an empiric PO ABX regimen but this may fail. Please discuss with Surgery re: their suspicion that the mesh is involved. If the mesh is involved, the infection may recur even after a course of antibiotics. These recommendations are not final. Contact Infectious Diseases as needed for updated recommendations (use the on-call schedule to find out who is covering your facility). REVENUE MANAGEMENT: I spent a total of 60 minutes coordinating, documenting, andproviding care for this patient excluding time spent in performance ofseparately billed services.
[2023-07-31] MEDS ORDERED: VANCOMYCIN CONSULT ACTIVE PRN (17:12)
[2023-07-31] MEDS ORDERED: VANCOMYCIN HCL 2,000 MG in SODIUM CHLORIDE 0.9% 500 ML IV SCH (17:15)
[2023-07-31] MEDS: VANCOMYCIN HCL 1,750 MG in SODIUM CHLORIDE 0.9% 500 ML IV SCH (18:30)
[2023-07-31] MEDS: ACETAMINOPHEN 325 MG TAB PO PRN (19:40)
[2023-07-31] MEDS: LIDOCAINE 5% 1 PATCH TD STA (21:08)
[2023-08-01 06:35] LABS: Basophils # (auto) 0.03 K/uL (0.00-0.20); Basophils % (auto) 0.4 %; Eosinophils # (auto) 0.12 K/uL (0.00-0.50); Eosinophils % (auto) 1.5 %; Hematocrit (blood only) 37.3 % (42.0-52.0); Hemoglobin 12.6 g/dl (14.0-18.0); Immature Granulocytes # (auto) 0.06 K/uL (0.01-0.20); Immature Granulocytes % (auto) 0.7 %; Lymphocytes # (auto) 1.25 K/uL (1.20-3.40); Lymphocytes % (auto) 15.5 %; Mean Corpuscular Hemoglobin 31.7 pg (25.0-34.0); Mean Corpuscular Hgb Conc 33.8 g/dL (32.0-36.0); Mean Platelet Volume 9.7 fL (9.4-12.4); Monocytes # (auto) 0.77 K/uL (0.11-0.59); Monocytes % (auto) 9.6 %; Neutrophils # (auto) 5.81 K/uL (1.40-6.50); Neutrophils % (auto) 72.3 %; Platelet Count 172 K/uL (130-400); RDW Standard Deviation 41.7 fL (36.4-46.3); Red Blood Count 3.97 M/uL (4.70-6.10); White Blood Count 8.04 K/ul (4.8-10.8)
[2023-08-01 07:00] LABS: BUN Creatinine Ratio 15.1 (10-20); Creatinine Clr Calc Pharmacy 188.1 ml/min; Est GFR (African American) 125.7 ml/min; Est GFR (Non-African American) 108.5 ml/min; Potassium 4.1 mmol/L (3.5-5.1)
--- NOTE | 2023-08-01 09:34 | Surgery Progress Note ---
Date of Service August 01, 2023 Assessment & Plan (1) Abdominal wall abscess: Plan: I think at this point he has had over 24 hours of IV ABX with little to no improvement He also is starting with some drainage from his incision Will plan on an incision and drainage of abdominal wall abscess tomorrow in [place] NPO after [place] ID consult reviewed, will obtain culture in OR Continue IVF ABX (2) Abdominal wall cellulitis: Admission and Anticipated Discharge Date Admission Date: July 30, 2023 Subjective Pt seen and examined. Still with abdominal pain and erythema. Started to have some slight drainage from incision. Low grade fever overnight. No N/V. Has been tolerating a diet. Review of Systems Constitutional: + fever; no chills Gastrointestinal: + abdominal pain; no nausea and no vomit ing Physical Exam Constitutional: WD/WN, vitals as above Gastrointestinal (Abdomen): Inspection/Auscultation: + abdominal edema; + abdomen abnormal to inspection and abdomen not distended Percussion/Palpation: + abdomen tender and abdomen soft; no guarding and no hernia Erythema unchanged from yesterday Incision with some drainage able to be expressed Results & Data Vital Signs (Past 12 Hours) Vital Signs Temp Pulse Resp BP Pulse Ox O2 Del Method 08/01/23 07:48 36.9 C 95 H 16 133/80 95 Room Air 07/31/23 23:01 37.4 C PG Care Time/CCT Total # of Minutes Spent Total Time Spent with Patient: Total time spent is greater than 50% in coordination of care (as documented) at patient's floor/unit and/or counseling patient: Coding Level of Care Code 45282 SUB INP/OBS CARE 2/35MIN Diagnoses Abdominal wall abscess L02.211 Abdominal wall cellulitis L03.311
[2023-08-01] MEDS: oxyCODONE HCL IR 5 MG TAB (IMMEDIATE RELEASE) PO PRN (10:42)
[2023-08-01] MEDS: DAPTOmycin 700 MG in SYRINGE 0 ML IV SCH (12:31)
--- NOTE | 2023-08-01 12:55 | Anesthesiology Consultation ---
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 History Surgery Operation Date: 08/02/23 07:30 Proposed Procedures p Irrigation and Debridement of Abdominal Wall Abscess - London Rodriguez DO Height/Weight Height: 6 ft 5 in Weight: 157.6 kg Allergies Allergy/AdvReac Type Severity Reaction Status Date / Time amoxicillin Allergy Severe ANAPHYLAXIS Verified 05/12/21 16:02 clavulanic acid Allergy Severe ANAPHYLAXIS Verified 05/12/21 16:02 Medications Home Medications Medication Instructions Recorded Confirmed Last Taken omeprazole 20 mg capsule,delayed 20 mg PO QAM 10/15/20 07/30/23 05/11/21 release aspirin 81 mg chewable tablet 81 mg PO QAM 07/30/23 07/30/23 Unknown atorvastatin 10 mg tablet 10 mg PO QAM 07/30/23 07/30/23 Unknown carvedilol 25 mg tablet 25 mg PO AMHS 07/30/23 07/30/23 Unknown Active Medications Generic Name Dose Route Start Last Admin Trade Name Freq PRN Reason Stop Dose Admin Acetaminophen 650 mg 07/31/23 01:29 07/31/23 19:40 Acetaminophen 325 Mg Tab PO 08/30/23 01:28 650 mg Q4H PRN Administration pain/fever Aspirin 81 mg 07/31/23 09:00 08/01/23 08:32 Aspirin 81 Mg Chew PO 08/30/23 08:59 81 mg QAM LASHAE Administration Atorvastatin Calcium 10 mg 07/31/23 09:00 08/01/23 08:33 Atorvastatin 10 Mg Tab PO 08/30/23 08:59 10 mg QAM LASHAE Administration Carvedilol 25 mg 07/31/23 09:00 08/01/23 08:33 Carvedilol 25 Mg Tab PO 08/30/23 08:59 25 mg BIDM LASHAE Administration Docusate Sodium 100 mg 07/31/23 09:00 08/01/23 08:32 Docusate Sodium 100 Mg Cap PO 08/30/23 08:59 100 mg BID LASHAE Administration Hydromorphone HCl 1 mg 07/31/23 08:03 08/01/23 11:49 Hydromorphone Inj 1 Mg/Ml Syringe IV 08/14/23 08:02 1 mg Q4H PRN Administration Severe Pain (Scale 7, 8, 9,10) Acetaminophen 1,000 mg in 100 mls @ 400 mls/hr 07/31/23 08:03 08/01/23 07:52 Ofirmev IV 08/03/23 08:02 Infused Q8H PRN Infusion Pain Daptomycin 700 mg/ Syringe 14 mls @ 7 mls/min 08/01/23 12:00 08/01/23 12:31 IV 08/08/23 11:59 7 mls/min Q24H LASHAE Administration Protocol Oxycodone HCl 5 mg 08/01/23 10:02 08/01/23 10:42 Oxycodone Hcl Ir 5 Mg Tab (Immediate Release) PO 08/15/23 10:01 5 mg Q6H PRN Administration Moderate Pain (Scale 4, 5, 6) Pantoprazole Sodium 40 mg 07/31/23 09:00 08/01/23 08:33 Pantoprazole 40 Mg Tab PO 08/30/23 08:59 40 mg QAM LASHAE Administration Polyethylene Glycol 17 gm 07/31/23 01:29 07/31/23 11:39 Polyethylene (Miralax) 17 Gm Pack PO 08/30/23 01:28 17 gm DAILY PRN Administration Constipation Past Medical History Medical History Enlarged aorta Follows with Dr. Cummins--has echos--currently watching at this time Last ECHO done 11/09/19- "aortic root is severely enlarged with diameter 4.8 cm. Proximal ascending thoracic aorta is mildly enlarged with diameter 4 cm." (No change from 04/2019) History of kidney stones No recent issues Tachycardia Reason for carvedilol--pt's HR runs typically at 100 without med, with med 70-80 beats--follows with Dr. Cummins "Paroxysmal atrial tachycardia" per records Hypertension Per records Past Family History Family History Other No family history of adverse response to anesthesia Past Surgical History Surgical History History of esophagogastroduodenoscopy (EGD) History of wisdom tooth extraction History of tonsillectomy and adenoidectomy Social History Smoking Status: Never smoker tobacco type: smokeless tobacco Smoking cigarettes per day: 20-30 cigs a day Do You Dip or Chew Tobacco: Yes Hx Alcohol Use: Yes Alcohol type: beer alcohol intake frequency: a few times a month Hx Substance Use: No substance use type: does not use Physical Exam Vital Signs Last Vital Signs Temp 98.4 F 08/01/23 07:48 Pulse 95 H 08/01/23 07:48 Resp 16 08/01/23 07:48 BP 133/80 08/01/23 07:48 Pulse Ox 95 08/01/23 07:48 O2 Del Method Room Air 08/01/23 07:48 Testing Laboratory Results 08/01/23 05:57 08/01/23 05:57 Urine Color Dark Yellow 07/30/23 20:26 Urine Appearance Clear (Clear) 07/30/23 20:26 Urine pH 6.0 (4.5-7.5) 07/30/23 20:26 Ur Specific [place] 1.032 (1.000-1.030) H 07/30/23 20:26 Urine Protein Trace (Negative) H 07/30/23 20:26 Urine Glucose (UA) Negative (Negative) 07/30/23 20:26 Urine Ketones Trace (Negative) H 07/30/23 20:26 Urine Nitrite Negative (Negative) 07/30/23 20:26 Ur Leukocyte Esterase Negative (Negative) 07/30/23 20:26 Urine WBC (Auto) 0-5 /hpf (0-5) 07/30/23 20:26 Urine RBC (Auto) 0-2 /hpf (0-2) 07/30/23 20:26 U Hyaline Cast (Auto) 0-2 /lpf (0-2) 07/30/23 20:26 U Epithel Cells (Auto) 0-2 /hpf (0-2) 07/30/23 20:26 Urine Bacteria (Auto) None Seen (None Seen) 07/30/23 20:26 07/30/23 22:53 Aerobic Blood Culture - Preliminary Blood No growth in Aerobic bottle after 24 hours. Anaerobic Blood Culture - Preliminary No growth in Anaerobic bottle after 24 hours. 07/30/23 22:59 Aerobic Blood Culture - Preliminary Blood No growth in Aerobic bottle after 24 hours. Anaerobic Blood Culture - Preliminary No growth in Anaerobic bottle after 24 hours. Echocardiogram Date: 05/13/21 EF 55-60% Mild concentric LVH Grade 1 diastolic dysfunction Mild AR/TR Doppler findings do not suggest pulmonary HTN Mild aortic root dilatation Mod dilated ascending aorta
--- NOTE | 2023-08-01 13:50 | Hospitalist Progress Note ---
Date of Service August 01, 2023 Assessment & Plan (1) Abdominal wall cellulitis: Plan: 38-year-old male with past medical history significant for aortic root enlargement s/p repair, ascending aortic aneurysm, paroxysmal atrial tachycardia, hypertension, morbid obesity, GERD, history of tobacco abuse, history of renal stone, comes because of erythematous rash around his umbilical region going on since last 1 week.Patient had umbical hernia repair on February 19, 2023. Abdominal wall cellulitis History of umbilical hernia repair; presents with 1 week of redness in periumbilical region CT abdomen shows cellulitis around umbilicus with focal area of phlegmonous change versus early abscess measuring 3.2 to 2.6 cm WBC within normal limits Discussion done with infectious disease (Dr. Ventura) on July 31, 2023; he recommends IV vancomycin. Later, pharmacy discussed with infectious disease; recommended daptomycin given difficulty in dosing due to body weight. Patient is started on daptomycin. CK within normal limits. Statin on hold. Plan to change to linezolid at discharge. As per infectious disease; if mesh is involvedthere is high likelihood of recurrent infection. I discussed this with the patient. He verbalized understanding.He has follow-up with his surgeon on Thursday. Patient to have I&D by surgery tomorrow a.m. History of aortic root enlargement s/p repair Ascending aortic aneurysm Follow-up as outpatient Hypertension Paroxysmal atrial tachycardia On Coreg, continue Hyperlipidemia On statin, on hold while patient is on daptomycin DVT prophylaxis SCDs for now,ambulation Disposition Medical floor Full code Please note the above document was generated using voice recognition software. It may contain grammatical, syntax or spelling errors. Any formal questions or concerns about the content, text or information contained within the body of this dictation should be directly addressed to the provider for clarification Admission and Anticipated Discharge Date Admission Date: July 30, 2023 Subjective Patient continues to report significant pain in his abdominal region Reports no improvement in the symptoms/redness/swelling Low-grade fever last night Review of Systems Review of Systems: All systems reviewed & are unremarkable except as noted in Subjective Physical Exam Physical Exam: Constitutional: WD/WN, vitals as above, NAD, sitting up in bed, pleasant, conversing easily Respiratory: normal respiratory effort, lungs clear to auscultation, no wheeze, rales, rhonchi. Normal insp/exp effort, no accessory muscle use Cardiovascular: RRR, no murmur, no edema Vessels: no JVD or carotid bruit Chest: normal inspection of chest Abdomen: Redness present over periumbilical/lower abdomen; induration present around umbilical site Musculoskeletal: no cyanosis or clubbing, extremities motor strength 5/5 Skin: no rashes, warm and dry normal turgor Neurologic: PERRL, EOMI, accommodation nl, no face palsy, no dysarthria CN's II- XI intact bilaterally and moves all extremities Psychiatric: A+Ox3, euthymic affect Results & Data Results & Data Vital Signs (Past 12 Hours) Vital Signs Temp Pulse Resp BP Pulse Ox O2 Del Method 08/01/23 07:48 36.9 C 95 H 16 133/80 95 Room Air
[2023-08-02 06:22] LABS: Basophils # (auto) 0.03 K/uL (0.00-0.20); Basophils % (auto) 0.4 %; Eosinophils # (auto) 0.15 K/uL (0.00-0.50); Eosinophils % (auto) 1.9 %; Hematocrit (blood only) 37.7 % (42.0-52.0); Hemoglobin 12.6 g/dl (14.0-18.0); Immature Granulocytes # (auto) 0.09 K/uL (0.01-0.20); Immature Granulocytes % (auto) 1.1 %; Lymphocytes % (auto) 16.5 %; Mean Corpuscular Hemoglobin 31.2 pg (25.0-34.0); Mean Corpuscular Hgb Conc 33.4 g/dL (32.0-36.0); Mean Corpuscular Volume 93.3 fL (80.0-100.0); Mean Platelet Volume 9.7 fL (9.4-12.4); Monocytes # (auto) 0.69 K/uL (0.11-0.59); Monocytes % (auto) 8.8 %; Neutrophils % (auto) 71.3 %; Platelet Count 186 K/uL (130-400); RDW Coefficient of Variation 12.2 % (11.5-14.5); RDW Standard Deviation 41.6 fL (36.4-46.3); Red Blood Count 4.04 M/uL (4.70-6.10); White Blood Count 7.86 K/ul (4.8-10.8)
[2023-08-02 06:47] LABS: BUN Creatinine Ratio 12.9 (10-20); Calcium 9.4 mg/dl (8.6-10.3); Creatinine Clr Calc Pharmacy 190.4 ml/min; Est GFR (African American) 126.3 ml/min; Potassium 4.3 mmol/L (3.5-5.1)
[2023-08-02] MEDS ORDERED: fentaNYL citrate PF 100 MCG/2 ML VIAL ONE (07:21)
[2023-08-02] MEDS ORDERED: ONDANSETRON INJ 2 MG/ML 2 ML VIAL ONE (07:21)
[2023-08-02] MEDS ORDERED: SUCCINYLCHOLINE CHLORIDE 20 MG/ML 10 ML VIAL IV ONE (07:21)
[2023-08-02] MEDS ORDERED: ROCURONIUM BROMIDE 10 MG/ML 5 ML VIAL IV ONE (07:21)
[2023-08-02] MEDS ORDERED: PROPOFOL IV EMULSION 10 MG/ML 20 ML VIAL IV ONE (07:21)
[2023-08-02] MEDS ORDERED: ePHEDrine sulfate 50 MG/ML AMP IV PRN (07:29)
[2023-08-02] MEDS ORDERED: ONDANSETRON INJ 2 MG/ML 2 ML VIAL IV PRN (07:29)
[2023-08-02] MEDS ORDERED: fentaNYL citrate PF 100 MCG/2 ML VIAL IV PRN (07:29)
[2023-08-02] MEDS ORDERED: ATROPINE SULFATE 0.1 MG/ML 10ML SYR IV PRN (07:29)
--- NOTE | 2023-08-02 07:32 | Surgery Progress Note ---
Date of Service August 02, 2023 Assessment & Plan (1) Abdominal wall abscess: Plan: Plan for incision and drainage of abdominal wall abscess today in the operating room Consent was obtained, risks discussed including bleeding, infection, nonhealing wound (2) Abdominal wall cellulitis: Admission and Anticipated Discharge Date Admission Date: July 30, 2023 Subjective Pt seen and examined. Afebrile. Incision opened up overnight. Pain improved. Review of Systems Constitutional: no fever and no chills Physical Exam Constitutional: WD/WN, vitals as above Gastrointestinal (Abdomen): Inspection/Auscultation: + abdominal edema; + abdomen abnormal to inspection and abdomen not distended Percussion/Palpation: + abdomen tender and abdomen soft; no guarding and no hernia Erythema unchanged from yesterday Incision with slight dehiscence Results & Data Vital Signs (Past 12 Hours) Vital Signs Temp Pulse Resp BP Pulse Ox O2 Del Method 08/01/23 20:00 36.9 C 75 18 135/75 97 Room Air PG Care Time/CCT Total # of Minutes Spent Total Time Spent with Patient: Total time spent is greater than 50% in coordination of care (as documented) at patient's floor/unit and/or counseling patient: Coding Level of Care Code 21493 SUB INP/OBS CARE 25MIN Diagnoses Abdominal wall abscess L02.211 Abdominal wall cellulitis L03.311
[2023-08-02] MEDS: BUPIVACAINE/EPINEPHRINE 0.5% MPF 1:200,000 30 ML VIAL ONE (07:57)
--- NOTE | 2023-08-02 08:00 | Post Operative Brief Note ---
PG Immediate Post Op with CF Date of Surgery August 02, 2023 Pre & Post Diagnosis Operation Date: 08/02/23 07:30 Pre-Op Diagnosis: ABDOMINAL WALL CELLULITIS, Abscess Post-Op Diagnosis: ABDOMINAL WALL CELLULITIS, abscess I identified the patient and participated in the time-out.: Yes Procedure Operation Date: 08/02/23 07:30 Actual Procedures p Incision and Drainage of Abdominal Wall Abscess - London Rodriguez DO Surgeon Londno Rodriguez DO Housing Management Representative Isa Alberto PA-C Estimated Blood Loss 2 Findings Consistent with Post-Op Diagnosis Specimens Specimen Description: A. Abdominal Wall Abcess Anesthesia Type General Complications none Disposition Disposition: Recovery Room
--- NOTE | 2023-08-02 08:03 | Operative Report ---
PG Post Operative Report Pre & Post Diagnosis Operation Date: 08/02/23 07:30 Pre-Op Diagnosis: ABDOMINAL WALL CELLULITIS, Abscess Post-Op Diagnosis: ABDOMINAL WALL CELLULITIS, Abscess I identified the patient and participated in the time-out.: Yes Procedure Operation Date: 08/02/23 07:30 Actual Procedures p Incision and Drainage of Abdominal Wall Abscess - London Rodriguez DO Surgeon London Rodriguez DO Credit Processor Isa Alberto PA-C Estimated Blood Loss 2 Findings Consistent with Post-Op Diagnosis Specimens Abdominal wall abscess fluid for culture Drains None Anesthesia Type General Complications none Disposition Disposition: Recovery Room Indications 38-year-old male with previous history of umbilical hernia repair with mesh, now with abdominal wall cellulitis and abscess Description of Procedure The patient was brought to the OR and placed in the supine position. At this time he underwent General endotracheal anesthesia without issue. He was given appropriate pre-operative antibiotics. The abdomen was prepped and draped in the usual sterile fashion. A timeout was called. The procedure was verified as Incision and drainage of abdominal wall abscess. Surgical, anesthesia and nursing teams agreed and the procedure was begun. After injection of 0.5% Marcaine with epinephrine, an incision was made through his previous incision at the maximal site of fluctuance using a #11 blade scalpel. Some purulent fluid was encountered. Wide drainage was ensured. All loculations were broken up bluntly. At this time the incision was irrigated until clear. Hemostasis was achieved using electrocautery. Hemostasis was complete. The incision was packed with 1 inch iodoform packing. Sterile dressing was applied. The patient was awakened from anesthesia and taking to PACU having remained stable throughout the entire case. All needle and sponge counts correct x 2. The physician banking assistant was present and scrubbed for the entire case. She was essential in positioning, prepping and draping the patient, retraction and exposure and placement of the dressing. I attest to the content of the Intraoperative Record and any orders documented therein. Any exceptions are noted below.
--- NOTE | 2023-08-02 08:33 | Anesthesiology Progress Note ---
Date of Service August 02, 2023 Anesthesia Post Procedure Vital Signs Vital Signs: Temp Pulse Pulse Resp BP Pulse Ox O2 Del Method 08/02/23 08:30 88 21 148/89 H 95 Room Air 08/02/23 08:20 86 20 131/79 98 Oxymask 08/02/23 08:11 98.2 F 83 15 140/91 98 Oxymask 08/01/23 20:00 98.4 F 75 18 135/75 97 Room Air 08/01/23 19:30 Room Air 08/01/23 17:29 72 138/79 O2 Flow Rate 08/02/23 08:30 08/02/23 08:20 3 08/02/23 08:11 6 08/01/23 20:00 08/01/23 19:30 08/01/23 17:29 Pain Intensity Abdomen: Pain Intensity: 9 Transfer of Care Handoff Completed per policy Notes Mental Status: alert / awake / arousable and participated in evaluation Patient Amnestic to Procedure: Yes Nausea / Vomiting: adequately controlled Pain: adequately controlled Airway Patency, RR, SpO2: stable & adequate BP & HR: stable & adequate Hydration State: stable & adequate Anesthetic Complications: no major complications apparent and Pt Satisfied with anesthetic care
--- NOTE | 2023-08-02 12:06 | Hospitalist Progress Note ---
Date of Service August 02, 2023 Assessment & Plan (1) Abdominal wall cellulitis: Plan: 38-year-old male with past medical history significant for aortic root enlargement s/p repair, ascending aortic aneurysm, paroxysmal atrial tachycardia, hypertension, morbid obesity, GERD, history of tobacco abuse, history of renal stone, comes because of erythematous rash around his umbilical region going on since last 1 week.Patient had umbical hernia repair on February 19, 2023. Abdominal wall cellulitis History of umbilical hernia repair; presents with 1 week of redness in periumbilical region CT abdomen shows cellulitis around umbilicus with focal area of phlegmonous change versus early abscess measuring 3.2 to 2.6 cm WBC within normal limits Status post irrigation debridement of abdominal wall abscess on 08/02/23 Discussion done with infectious disease (Dr. Ventura) on July 31, 2023; he recommends IV vancomycin. Later, pharmacy discussed with him; recommended daptomycin given difficulty in dosing due to body weight. Patient is started on daptomycin. CK within normal limits. Statin on hold. Plan to change to linezolid at discharge. As per infectious disease; if mesh is involvedthere is high likelihood of recurrent infection. I discussed this with the patient. He verbalized understanding. Will follow-up on culture and sensitivity from the OR History of aortic root enlargement s/p repair Ascending aortic aneurysm Follow-up as outpatient Hypertension Paroxysmal atrial tachycardia On Coreg, continue Hyperlipidemia On statin, on hold while patient is on daptomycin DVT prophylaxis SCDs for now,ambulation Disposition Medical floor Full code Please note the above document was generated using voice recognition software. It may contain grammatical, syntax or spelling errors. Any formal questions or concerns about the content, text or information contained within the body of this dictation should be directly addressed to the provider for clarification Admission and Anticipated Discharge Date Admission Date: July 30, 2023 Subjective Overnight, patient's incision opened up with drainage of abscess. In the morning patient was taken to the OR for I&D Review of Systems Review of Systems: All systems reviewed & are unremarkable except as noted in Subjective Physical Exam Physical Exam: Constitutional: WD/WN, vitals as above, NAD, sitting up in bed, pleasant, conversing easily Respiratory: normal respiratory effort, lungs clear to auscultation, no wheeze, rales, rhonchi. Normal insp/exp effort, no accessory muscle use Cardiovascular: RRR, no murmur, no edema Vessels: no JVD or carotid bruit Chest: normal inspection of chest Abdomen: Dressing in place over the abdomen; mild improvement in the redness Musculoskeletal: no cyanosis or clubbing, extremities motor strength 5/5 Skin: no rashes, warm and dry normal turgor Neurologic: PERRL, EOMI, accommodation nl, no face palsy, no dysarthria CN's II- XI intact bilaterally and moves all extremities Psychiatric: A+Ox3, euthymic affect Results & Data Results & Data Vital Signs (Past 12 Hours) Vital Signs Temp Pulse Pulse Resp BP Pulse Ox O2 Del Method 08/02/23 11:29 36.6 C 87 18 112/73 93 Room Air 08/02/23 10:51 36.7 C 88 17 120/80 95 Room Air 08/02/23 10:04 36.7 C 89 17 127/78 95 Room Air 08/02/23 09:25 36.6 C 90 16 121/81 95 Room Air 08/02/23 08:56 36.6 C 86 18 125/94 95 Room Air 08/02/23 08:40 36.8 C 88 17 143/85 H 93 Room Air 08/02/23 08:30 88 21 148/89 H 95 Room Air 08/02/23 08:20 86 20 131/79 98 Oxymask 08/02/23 08:11 36.8 C 83 15 140/91 98 Oxymask O2 Flow Rate 08/02/23 11:29 08/02/23 10:51 08/02/23 10:04 08/02/23 09:25 08/02/23 08:56 08/02/23 08:40 08/02/23 08:30 08/02/23 08:20 3 08/02/23 08:11 6
[2023-08-03 06:39] LABS: Basophils # (auto) 0.04 K/uL (0.00-0.20); Basophils % (auto) 0.6 %; Eosinophils % (auto) 3.2 %; Hematocrit (blood only) 37.6 % (42.0-52.0); Hemoglobin 12.4 g/dl (14.0-18.0); Immature Granulocytes # (auto) 0.07 K/uL (0.01-0.20); Immature Granulocytes % (auto) 1.1 %; Lymphocytes # (auto) 1.12 K/uL (1.20-3.40); Lymphocytes % (auto) 18.2 %; Mean Corpuscular Hemoglobin 31.1 pg (25.0-34.0); Mean Corpuscular Volume 94.2 fL (80.0-100.0); Mean Platelet Volume 9.6 fL (9.4-12.4); Monocytes # (auto) 0.61 K/uL (0.11-0.59); Monocytes % (auto) 9.9 %; Neutrophils # (auto) 4.13 K/uL (1.40-6.50); Platelet Count 199 K/uL (130-400); RDW Standard Deviation 42.1 fL (36.4-46.3); Red Blood Count 3.99 M/uL (4.70-6.10); White Blood Count 6.17 K/ul (4.8-10.8)
[2023-08-03 07:32] LABS: Calcium 9.5 mg/dl (8.6-10.3); Creatinine Clr Calc Pharmacy 149.8 ml/min; Est GFR (Non-African American) 85.4 ml/min; Potassium 4.5 mmol/L (3.5-5.1)
--- NOTE | 2023-08-03 08:19 | Surgery Progress Note ---
Date of Service August 03, 2023 Assessment & Plan (1) Abdominal wall abscess: Plan: Packing changed at bedside, wound without any further purulence WBC normal and patient feels better Can be discharged today on 14 day course of Augmentin which would cover what is showing in gram stain from OR culture He has follow up with Dr. Alvarenga tomorrow at 11AM He can keep dressing in place until that time Surgery will sign off at this time, please call with any questions or concerns (2) Abdominal wall cellulitis: Admission and Anticipated Discharge Date Admission Date: July 30, 2023 Subjective Pt seen and examined. Pain controlled. Feels much better. Afebrile. Physical Exam Constitutional: WD/WN, vitals as above Gastrointestinal (Abdomen): cellulitis improved wound packing changed at bedside Results & Data Vital Signs (Past 12 Hours) Vital Signs Temp Pulse Resp BP Pulse Ox O2 Del Method 08/03/23 08:04 37.2 C 80 16 116/69 95 Room Air 08/03/23 03:49 36.6 C 70 18 122/72 96 Room Air 08/03/23 00:39 36.5 C 79 16 133/76 99 Room Air PG Care Time/CCT Total # of Minutes Spent Total Time Spent with Patient: Total time spent is greater than 50% in coordination of care (as documented) at patient's floor/unit and/or counseling patient: Coding Level of Care Code 34987 Post Operative Follow-Up Diagnoses Abdominal wall abscess L02.211 Abdominal wall cellulitis L03.311
[2023-08-03] MEDS: AZTREONAM 2,000 MG in DEXTROSE 5% MINI-B 100 ML IV SCH (12:33)
--- NOTE | 2023-08-03 15:57 | Hospitalist Progress Note ---
Date of Service August 03, 2023 Assessment & Plan (1) Abdominal wall cellulitis: Plan: 38-year-old male with past medical history significant for aortic root enlargement s/p repair, ascending aortic aneurysm, paroxysmal atrial tachycardia, hypertension, morbid obesity, GERD, history of tobacco abuse, history of renal stone, comes because of erythematous rash around his umbilical region going on since last 1 week.Patient had umbical hernia repair on February 19, 2023. Abdominal wall cellulitis History of umbilical hernia repair; presents with 1 week of redness in periumbilical region CT abdomen shows cellulitis around umbilicus with focal area of phlegmonous change versus early abscess measuring 3.2 to 2.6 cm WBC within normal limits Status post irrigation debridement of abdominal wall abscess on 08/02/23 Gram stainmoderate gram-positive cocci, rare gram-negative bacilli Discussion done with infectious disease (Dr. Ventura) on July 31, 2023; he recommends IV vancomycin. Later, pharmacy discussed with him; recommended da ptomycin given difficulty in dosing due to body weight. Patient is started on daptomycin. CK within normal limits. Statin on hold. Plan to change to linezolid at discharge. As per infectious disease; if mesh is involvedthere is high likelihood of recurrent infection. I discussed this with the patient. He verbalized understanding. Discussed with Dr. Ventura from infectious disease again on July. Updated Gram stain results. He recommends adding Azactam and following up on final culture and sensitivity.His appointment with the surgeon as to be rearranged as patient will not be able to discharge today as ID recommended following up on final culture and sensitivity and continuing iv antibiotics. History of aortic root enlargement s/p repair Ascending aortic aneurysm Follow-up as outpatient Hypertension Paroxysmal atrial tachycardia On Coreg, continue Hyperlipidemia On statin, on hold while patient is on daptomycin DVT prophylaxis SCDs for now,ambulation Disposition Medical floor Full code Please note the above document was generated using voice recognition software. It may contain grammatical, syntax or spelling errors. Any formal questions or concerns about the content, text or information contained within the body of this dictation should be directly addressed to the provider for clarification Admission and Anticipated Discharge Date Admission Date: July 30, 2023 Subjective Patient seen and examined at bedside Slight improvement in the redness. Afebrile overnight No significant events overnight Review of Systems Review of Systems: All systems reviewed & are unremarkable except as noted in Subjective Physical Exam Physical Exam: Constitutional: WD/WN, vitals as above, NAD, sitting up in bed, pleasant, conversing easily Respiratory: normal respiratory effort, lungs clear to auscultation, no wheeze, rales, rhonchi. Normal insp/exp effort, no accessory muscle use Cardiovascular: RRR, no murmur, no edema Vessels: no JVD or carotid bruit Chest: normal inspection of chest Abdomen: Dressing in place over the abdomen; Improvement redness, swelling. Musculoskeletal: no cyanosis or clubbing, extremities motor strength 5/5 Skin: no rashes, warm and dry normal turgor Neurologic: PERRL, EOMI, accommodation nl, no face palsy, no dysarthria CN's II- XI intact bilaterally and moves all extremities Psychiatric: A+Ox3, euthymic affect Results & Data Results & Data Vital Signs (Past 12 Hours) Vital Signs Temp Pulse Resp BP Pulse Ox O2 Del Method 08/03/23 15:36 36.7 C 60 15 115/70 97 Room Air 08/03/23 08:04 37.2 C 80 16 116/69 95 Room Air 08/03/23 03:49 36.6 C 70 18 122/72 96 Room Air
[2023-08-04 07:30] LABS: Basophils # (auto) 0.06 K/uL (0.00-0.20); Basophils % (auto) 0.9 %; Eosinophils # (auto) 0.23 K/uL (0.00-0.50); Eosinophils % (auto) 3.5 %; Hematocrit (blood only) 39.3 % (42.0-52.0); Immature Granulocytes % (auto) 1.5 %; Lymphocytes # (auto) 1.36 K/uL (1.20-3.40); Lymphocytes % (auto) 20.6 %; Mean Corpuscular Hemoglobin 30.7 pg (25.0-34.0); Mean Corpuscular Hgb Conc 33.1 g/dL (32.0-36.0); Mean Corpuscular Volume 92.7 fL (80.0-100.0); Mean Platelet Volume 9.5 fL (9.4-12.4); Monocytes # (auto) 0.56 K/uL (0.11-0.59); Monocytes % (auto) 8.5 %; Neutrophils # (auto) 4.28 K/uL (1.40-6.50); Platelet Count 243 K/uL (130-400); RDW Coefficient of Variation 12.1 % (11.5-14.5); RDW Standard Deviation 40.8 fL (36.4-46.3); Red Blood Count 4.24 M/uL (4.70-6.10); White Blood Count 6.59 K/ul (4.8-10.8)
[2023-08-04 09:30] LABS: BUN Creatinine Ratio 22.1 (10-20); Calcium 9.5 mg/dl (8.6-10.3); Creatinine Clr Calc Pharmacy 210.1 ml/min; Est GFR (African American) 131.6 ml/min; Est GFR (Non-African American) 113.5 ml/min; Potassium 4.2 mmol/L (3.5-5.1)
--- NOTE | 2023-08-04 13:52 | Discharge Summary ---
Date of Service August 04, 2023 Admission HPI Per Admitting Provider 38-year-old male with past medical history significant for aortic root enlargement s/p repair, ascending aortic aneurysm, paroxysmal atrial tachycardia, hypertension, morbid obesity, GERD, history of tobacco abuse, history of renal stone, comes because of erythematous rash around his umbilical region going on since last 1 week.Patient had umbical hernia repair on February 19, 2023. He was doing okay. But since last 1 week he developed erythematous rash on the umbilical region. Having lot of pain. Pain is more with movement. Last few days appetite is down. Denies any fevers. Has some blurred visions. Denies chest pain or shortness of breath. Currently no cough. Today having headache. No sore throat. Last few days having alternating diarrhea and constipation. Denies any blood in the stools. Micturating okay. Hemodynamics are okay. Past medical history. As mentioned above. Past surgical history. Ascending aortic graft bypass. Left heart coronary angiography. Tonsillectomy. Umbilical hernia repair. Social history. . Quit smoking in 2020. Smoked 1 pack a day for 10 years. Alcohol occasionally. No drug use. Family history. Mother had cancer. Father had heart disease. I defenders him. Paternal grandfather had heart disease. Paternal grandmother had dementia. Maternal grandmother had heart disease. Admission Exam Per Admitting Provider General- Not in distress. Head- atraumatic Eyes- PERRL. ENT- oropharynx clear Neck- supple, no JVD. Lungs- clear to auscultation no wheezing or crackles. Heart- regular rhythm; no murmur, no gallop. Abdomen- normal bowel sounds, soft, tenderness in periumbilical region Extremities- no pretibial edema, no erythema seen. Neuro- alert, oriented . No dysarthria, No facial palsy, Moves extremities. Skin- Erythematous changes in anterior abdominal wall mostly periumbilical region Principal Diagnosis Abdominal wall abscess and cellulitis status post irrigation and debridement on 08/02/2023 Discharge Exam Constitutional: WD/WN, vitals as above, NAD, sitting up in bed, pleasant, conversing easily Respiratory: normal respiratory effort, lungs clear to auscultation, no wheeze, rales, rhonchi. Normal insp/exp effort, no accessory muscle use Cardiovascular: RRR, no murmur, no edema Vessels: no JVD or carotid bruit Chest: normal inspection of chest Abdomen: Dressing in place over the abdomen; Improvement redness, swelling. Musculoskeletal: no cyanosis or clubbing, extremities motor strength 5/5 Skin: no rashes, warm and dry normal turgor Neurologic: PERRL, EOMI, accommodation nl, no face palsy, no dysarthria CN's II- XI intact bilaterally and moves all extremities Psychiatric: A+Ox3, euthymic affect Discharge Data Allergies Allergy/AdvReac Type Severity Reaction Status Date / Time amoxicillin Allergy Severe ANAPHYLAXIS Verified 05/12/21 16:02 clavulanic acid Allergy Severe ANAPHYLAXIS Verified 05/12/21 16:02 Consultations 07/30/23 22:41 ED Decision to Admit Stat 07/31/23 08:00 Consult General Surgery Routine 07/31/23 09:00 Consult Infectious Diseases Routine Procedures Performed Operation Date: 08/02/23 07:30 Actual Procedures p Irrigation and Debridement of Abdominal Wall Abscess - London Rodriguez DO Ordered Studies 07/30/23 20:14 CT abd pelvis IV con only Stat Hospital Course (1) Abdominal wall cellulitis: 38-year-old male with past medical history significant for aortic root enlargement s/p repair, ascending aortic aneurysm, paroxysmal atrial tachycardia, hypertension, morbid obesity, GERD, history of tobacco abuse, history of renal stone, comes because of erythematous rash around his umbilical region going on since last 1 week.Patient had umbical hernia repair on February 19, 2023. CT abdomen shows cellulitis around umbilicus with focal area of phlegmonous change versus early abscess measuring 3.2 into 2.6 cm. Surgery evaluated the patient; patient had irrigation and debridement on 08/02/2023 IntraOp Gram stain showed gram-positive cocci, rare gram-negative bacilli Final Cultures are pending Multiple discussion was done with Dr. Ventura from infectious disease regarding choice of antibiotics. He recommended linezolid and ciprofloxacin on the day of the discharge. Patient was discharged on 7-day course of the antibiotics. Patient has follow-up set up with his surgeon prior to completion of antibiotics. We discussed that if he has infection of the mesh; antibiotics treatment will not resolve the infection completely. I asked him to discuss this with his surgeon on follow-up. He verbalized and understood the instructions. Please note the above document was generated using voice recognition software. It may contain grammatical, syntax or spelling errors. Any formal questions or concerns about the content, text or information contained within the body of this dictation should be directly addressed to the provider for clarification Total Time Total Time Spent Total Time Spent (In Minutes): 45 Total Time Includes: Examination of the Patient, Discharge Planning, Medication Reconciliation, Communication With Other Providers and Other Discharge Plan Discharge Items Patient Disposition: Home - Home Health Services Reason For Visit: ABDOMINAL WALL CELLULITIS Discharge Diagnosis: Abdominal wall abscess/cellulitis status post irrigation and drainage Activity: Resume your previous activity Lifting: No more than 10 pounds Bathing: Keep incision dry Exercise/Sports: Wait until after follow-up appointment Non-emergency contact: Primary Care Provider Call non-emergency contact if: you have any medication questions and your symptoms worsen Follow-up/Referrals: Aj Alvarenga MD [Physician] - 08/10/23 11:20 am (Date & Time 08/10/2023 11:20 AM Provider [facility] Honorio Cortez PA-C [Primary Care Provider] - 08/11/23 12:20 pm (Date & Time 08/11/2023 12:20 PM Provider Matthew Daniel PA-C Department [facility] ) Diet: Regular Addtl Attending Provider Instructions: You were admitted to the hospital due to abdominal wall infection and abscess. You underwent irrigation and debridement of the abscess by surgery on August 02, 2023. Infectious disease was consulted to determine the antibiotics. They recommend following antibiotics: 1) Linezolid 600 mg twice daily for 7 days 2) Ciprofloxacin 500 mg twice daily for 7 days You were prescribed ibuprofen and oxycodone as needed for pain control. Change dressing every other day and keep it dry. An appointment with Dr. Alvarenga is set up for Thursday. As we have discussed, if the infection has involved mesh; you will need further evaluation for surgery to control the infection. Pending Studies at Discharge: No Stand-Alone Forms: [employer], Smoking Cessation Medications and DC Order Prescriptions: New linezolid 600 mg tablet 600 mg PO BID 7 Days Qty: 14 0RF ciprofloxacin HCl 500 mg tablet 500 mg PO BID 7 Days Qty: 14 0RF ibuprofen 800 mg tablet 800 mg PO Q8H PRN (Reason: pain) Qty: 30 0RF oxycodone 10 mg tablet 10 mg PO BID PRN (Reason: pain) Qty: 20 0RF Continued omeprazole 20 mg capsule,delayed release(DR/EC) 20 mg PO QAM carvedilol 25 mg tablet 25 mg PO [facility] atorvastatin 10 mg tablet 10 mg PO QAM aspirin 81 mg tablet,chewable 81 mg PO QAM Discharge Orders: Discharge Order (Routine); Ordered 08/04/23 Ordered By: Arjun Wilkerson Admission Data Admit Date/Time: 07/30/23 23:49 Attending Provider: Arjun Wilkerson Admit Provider: Merlin Forman Primary Care Provider: Honorio Cortez Other Providers: Merlin Forman; Zachary Mccauley; Ariel Cunningham; Geovanny Cortes; Dov Colon I.; Simba Ramos II; Zainab Garrett; Aj Douglas; Arian Ventura; William Bo; Tomy Graves; [place],[facility]
--- NOTE | 2023-08-05 14:51 | Coding Query ---
CODING QUERY To promote full compliance with coding requirements relating to patient care, provider participation is requested in all cases of child care specialist uncertainty. Please assist us with the question(s) below: Clinical Indicator(s): H&P: * Patient had umbical hernia repair on February 19, 2023. * ...last 1 week he developed erythematous rash on the umbilical region * CT scan showing cellulitis around umbilicus with focal area of phlegmonous change versus early abscess * Will continue with IV clinda and Azactam Communication Note 07/31/2023: * Please discuss with Surgery re: their suspicion that the mesh is involved. If the mesh is involved, the infection may recur even after a course of antibiotics. Operative Report 08/02/2023: * Pre/Post-Op Diagnosis: ABDOMINAL WALL CELLULITIS, Abscess * Actual Procedures: Incision and Drainage of Abdominal Wall Abscess Discharge Summary: * IntraOp Gram stain showed gram-positive cocci, rare gram-negative bacilli * Final Cultures are pending * Patient was discharged on 7-day course of the antibiotics. * Discharge Diagnosis: Abdominal wall abscess/cellulitis status post irrigation and drainage Coding Question(s): Based on the clinical indicators above, are you able to further specify the etiology of the abscess and cellulitis as: * Infection and inflammatory reaction due to other prosthetic devices, implants and grafts * Infection following a procedure, deep incisional surgical site * Other: (Please specify) * Unable to determine. Physician's Response(s): Unable to determine Thank you Janice FAUST
== END 2023-08-04 14:31 | disposition home health service (06) | DRG 580 ==
LOC: ED 19:30 → 3N 23:49